=== PATIENT | female | born 1985 | race Caucasian/White ===

== ENCOUNTER 2021-04-26 15:06 | Emergency (ER) | payer OTHER, SELFPAY ==
--- NOTE | 2021-04-26 15:10 | ED.URI ---
HPI - URI/Sore Throat General Chief Complaint: Upper Respiratory Infection Stated Complaint: cough sore throat congestion Time Seen by Provider: 04/26/21 15:54 Source: patient and RN notes reviewed Mode of arrival: ambulatory Limitations: no limitations History of Present Illness HPI Narrative: 35-year-old female presents concern for 8-day history of persistent cough. Reports some nasal congestion and rhinorrhea. Reports hoarseness and cough started today. Reports she had a virtual visit with her doctor yesterday who prescribed her amoxicillin for possible sinus infection. Reports she is taken 3 doses of that the symptoms have not improved, cough persist and have gotten worse. She reports she is taken to rapid Covid test at home both which were negative. MD elicited complaint: cough Related Data Home Medications Medication Instructions Recorded Confirmed blood sugar diagnostic #10 each 08/10/19 amoxicillin 875 mg PO Q12H 04/26/21 04/26/21 benzonatate 100 mg PO TID PRN 04/26/21 04/26/21 sitagliptin-metformin [Janumet] 1 tablet PO BID 04/26/21 04/26/21 Allergies Allergy/AdvReac Type Severity Reaction Status Date / Time codeine Allergy Unknown Nausea and Verified 04/26/21 15:42 Vomiting lisinopril Allergy Unknown Nausea and Verified 04/26/21 15:42 Vomiting morphine Allergy Unknown Nausea and Verified 04/26/21 15:42 Vomiting Review of Systems Review of Systems: CONSTITUTIONAL: Denies malaise, chills, sweats, or fever. EYES: Denies visual changes, redness, or discharge. ENT: Reports rhinorrhea, congestion, sore throat, hoarse voice. Denies sinus pain, otalgia CARDIOVASCULAR: Denies chest pain, palpitations, or edema. RESPIRATORY: Reports persistent cough. Denies dyspnea. GASTROINTESTINAL: Denies abdominal pain, nausea, vomiting, diarrhea SKIN: Denies rash or itching. MUSCULOSKELETAL: Denies myalgia. NEUROLOGIC: Denies headache. All systems reviewed & are unremarkable except as noted in HPI and below PMFSH Social History Social History Smoking status: Current every day smoker Alcohol intake: current Comments At time of signature, agree with nursing past medical, surgical, social and family history. There is no relevant family history pertinent to the presenting complaint Exam Narrative: GENERAL: Well-appearing, well-nourished, and in no acute distress. HEAD: Normocephalic EYES: PERRLA, conjunctivae clear ENT: Nares clear, clear discharge. Mucous membranes moist. TM pearly cohne with dull light reflex bilaterally; no tragal tenderness. Oropharynx not erythematous without lesions. Tonsils notes enlarged and without exudate, no drooling, mildly tested hoarseness, no trismus, uvula midline. NECK: Supple. No lymphadenopathy CHEST: Clear to auscultation, breath sounds equal. No wheezing, rhonchi, rales, or stridor. No respiratory distress, speaks in full sentences. Cough noted right ear HEART: Regular rate and rhythm. No murmur heard. SKIN: Warm, dry, no rash. NEURO: Alert and oriented x3. PSYCH: Normal mood and affect Course Course Emergency Course: Patient is aware of diagnosis, understands and agrees to treatment plan. Anticipatory guidance given. Patient agrees to follow-up as directed and is aware of reasons to seek care at the emergency department. Portions of this record may have been created with voice recognition software Vital Signs Vital signs: Reviewed. MDM - URI/Sore Throat MDM Narrative Medical decision making narrative: Differential diagnosis considered: Macias virus, strep pharyngitis, allergic rhinitis, upper respiratory tract infection, sinusitis, rhinosinusitis, nasopharyngitis. viral pharyngitis, otitis media, otitis externa, pneumonia, bronchitis, viral cough syndrome, viral syndrome, and influenza. Exam findings show no acute concerns or changes; patient is non-toxic appearing and is in no distress. Patient is appropriate for outpatient treatment and follow-up. Critical Care
[2021-04-26 15:15] VITALS: BP 132/81; PULSE 91; RESP 20; TEMP 36.1; O2SAT 99
== END 2021-04-26 16:10 | disposition home or self-care (01) ==
PROVIDERS: Emergency Provider Nurse Practitioner
DX: J40 Bronchitis, not specified as acute or chronic (principal); F17.200 Nicotine dependence, unspecified, uncomplicated; K21.9 Gastro-esophageal reflux disease without esophagitis; E11.9 Type 2 diabetes mellitus without complications; F32.9 Major depressive disorder, single episode, unspecified; K75.81 Nonalcoholic steatohepatitis (NASH)
CPT/HCPCS: 99203; G0463

== ENCOUNTER 2021-09-08 12:17 | Outpatient (CLI) | payer OTHER, SELFPAY ==
--- NOTE | ~2021-09-08 | CT_ITS ---
EXAMINATION: CT sinus wo con DATE: 09/08/2021 12:36 INDICATION: Chronic frontal pain, sinusitis TECHNIQUE: Computed tomography (CT) of the paranasal sinuses was performed without contrast. Iterativ e reconstruction technique was employed. Exam dose: 279.81 mGy-cm total exam DLP. COMPARISON: None FINDINGS: There is leftward deviation of nasal septum. There is moderate asymmetric prominence of the right inferior nasal turbinate. There is severe soft tissue swelling in the midportion of the nasal cavities, the soft tissue engulfi ng the middle nasal turbinates, opacifying the millimeters bilaterally, with complete opacification o f the maxillary ostium and infundibulum and ethmoid bullae bilaterally. There is mild mucoperiosteal thickening of both frontal sinuses and prominent partial opacification o f the ethmoid air cells bilaterally. The maxillary sinuses are completely opacified bilaterally, with no aeration whatsoever. The sphenoid sinuses are normally developed and aerated. The mastoid air cells are very well developed and aerated bilaterally. IMPRESSION: Complete opacification of both ostiomeatal units and both maxillary sinuses Extensive soft tissue thickening in the region of the middle meatus and middle nasal turbinates bilat erally Mild mucoperiosteal thickening of the frontal sinuses and patchy opacification of the ethmoid air shankar ls bilaterally Reviewed, dictated and finalized at [facility]. Reviewed, dictated and finalized at [facility] IMPRESSION: Complete opacification of both ostiomeatal units and both maxillar y sinuses Extensive soft tissue thickening in the region of the middle meatus and middle nasal turbinates bilaterally Mild mucoperiosteal thickening of the frontal sinuses and patchy opacification of the ethmoid air cells bilaterally
== END 2021-09-08 12:18 | disposition home or self-care (01) ==
LOC: CHSIMG 12:18
PROVIDERS: PCP Family Medicine
DX: J32.1 Chronic frontal sinusitis (principal)
CPT/HCPCS: 70486

== ENCOUNTER 2021-10-10 08:44 | Outpatient (CLI) | payer OTHER, SELFPAY ==
--- NOTE | 2021-10-10 09:02 | ECG_ITS ---
Measurements Intervals [place] Rate: 73 P: 25 RI: 118 QRS: 31 QRSD: 95 T: 26 QT: 377 QTc: 416 Interpretive Statements SINUS RHYTHM WITH SHORT RI INTERVAL BASELINE ARTIFACT- I, III, AVR, AVL, AVF BORDERLINE ECG Electronically Signed On 10-10-2021 9:43:29 CENTRAL STATION OPERATOR by Rickey Martinez D.O.
[2021-10-10 09:46] LABS: Anion Gap 8 mmol/L (8-16); Blood Urea Nitrogen 10 mg/dL (7-17); Calcium 9.1 mg/dL (8.4-10.2); Carbon Dioxide 28 mmol/L (22-30); Chloride 105 mmol/L (98-107); Estimated Glomerular Filt Rate > 60; Glucose 164 mg/dL (65-110); Potassium 4.6 mmol/L (3.4-5.0); Sodium 141 mmol/L (137-145)
[2021-10-10 09:48] LABS: Prothrombin Time 12.9 Seconds (11.1-14.7)
[2021-10-10 09:49] LABS: Partial Thromboplastin Time 26.8 SECONDS (22.3-36.8)
== END 2021-10-10 08:45 | disposition home or self-care (01) ==
LOC: ANHSURGERY 08:50
PROVIDERS: Anesthesiology; PCP Family Medicine; Visit Provider Otolaryngology
DX: Z01.812 Encounter for preprocedural laboratory examination (principal); E11.9 Type 2 diabetes mellitus without complications; K75.81 Nonalcoholic steatohepatitis (NASH)
CPT/HCPCS: 36415; 80048; 85610; 85730; 93005

== ENCOUNTER 2021-10-13 03:47 | Day surgery (SDC) | payer OTHER, SELFPAY ==
[2021-10-05 14:54] VITALS: BMI 37.9
--- NOTE | 2021-10-05 15:24 | PC.NURSE ---
Report to the Outpatient Waiting Room, entrance under the green pavilion located off [facility], at time _1000_ on date 10/13/21_. OR Time: _1200 . IF YOUR SURGERY TIME IS CHANGED, WE WILL CALL YOU TH10/12/21 AFTERNOON - You will be asked a series of questions to screen for COVID 19 for your protection. - A mask is required within the hospital. - No visitors are allowed at this time. Preoperative COVID Testing Requirements: No COVID Test needed if: (proof is required; if not received patient will have Rapid Test prior to entry)YOU DO NOT REQUIRE COVID SCREENING - Patient has received COVID Vaccine at least 14 days prior to procedure date or - Patient has positive COVID test result within last 90 days of surgery date. COVID Test needed if above criteria is not met If not COVID vaccinated a COVID test must be conducted within 72 hours of surgery and patient is asked to isolate self from time of testing until procedure. You will go to the [facility] for your COVID testing. The [facility] Testing site is located at the corner of [address] from [facility]. You will only be called if COVID results are positive and your surgeon may reschedule your elective surgery date. Patients may have clear liquids (water, carbonated beverages, clear teas, apple juice) until 3 hours prior to surgery with a maximum of 20 ounces. YOU MAY HAVE CLEAR LIQUIDS UNTIL 0900 ON THE MORNING OF SURGERY - No food from midnight until time of surgery - Infants may have breast milk until 4 hours before surgery, infant formula 6 hours prior to surgery. - Children will be allowed to drink immediately following surgery. If applicable, please bring a bottle or sippy cup to assist with drinking. Juice, water, soda, and popsicles are readily available. For infants on formula, please bring formula the day of surgery. Pacifiers are allowed. Take the following medications with a SIP of water the morning of surgery: _HOLD MORNING DIABETIC MEDS; TAKE LEXAPRO IF YOU DESIRE Medications to discontinue per physician ____VITAMINS & SUPPLMEMENTS Date to take last dose___10/10/21 Please no make-up, nail estonian, hairspray, perfume, deodorant, or body powder the day of surgery. No jewelry (including any body piercings) or valuables the day of surgery, leave them at home. Please take a shower or bath the night before, or the morning of, surgery with an antibacterial soap. Wear comfortable, loose fitting clothing. Children are encouraged to wear pajamas. - Jewelry must be removed prior to entering the operating room. Rings and piercings that are not removed may be cut off. - The hospital will not accept responsibility for valuables. - Please leave all valuables, including medications, at home the day of surgery. If you are going home after surgery, a licensed pile driver operator helper must drive you home. - NO public transportation without another adult. - We recommend that an adult stay with you for 24 hours following discharge. - We also recommend that you do not drive, make important decision, drink alcoholic beverages, or take any drugs that were not prescribed by your health care provider for at least 24 hours after your discharge time. For Pediatric surgeries, we recommend two adults accompany the child home (only one inside the building at this time). Follow any additional instructions given to you from your surgeon. Telephone instructions given to JEANE and asked if any additional questions and then verbalized understanding. Patient advised to call surgeon office or pre surgery nurse liaison [phone] if any additional questions.
--- NOTE | 2021-10-12 17:37 | PM.IMHP ---
H&P: HPI History of Present Illness Date/Time: 10/12/21 17:37 Chief Complaint: Nasal obstruction nasal congestion septal deviation turbinate hypertrophy chronic sinusitis odontogenic sinusitis Narrative: patient presents for planned surgical procedures. No change in symptoms no change in history. Review of Systems Constitutional: Constitutional: Denies fatigue, Denies fever(s) and Denies lethargy Eyes: Eyes: Denies blurry vision and Denies change in vision ENT: Reports as per HPI Cardiovascular: Cardiovascular: Denies chest pain Respiratory: Respiratory: Denies cough Endocrine: Endocrine: Denies fatigue Hematologic/Lymphatic: Hematologic/Lymphatic: Denies easy bleeding, Denies easy bruising and Denies lymphadenopathy Allergic/Immunologic: Allergic/Immunologic: Denies seasonal rhinorrhea [facility] Past Medical History Medical History (Updated 09/13/21 @ 09:17 by Demetrius Escobedo MD) Diabetes GERD (gastroesophageal reflux disease) GONSALES (nonalcoholic steatohepatitis) Social History Social History (Updated 09/13/21 @ 08:16 by Milagros Jovel MA) Smoking packs per day: 1 Smoking cigarettes per day: 20.0 Years smoked: 10 Smoking pack-years: 10.00 Smoking status: Former smoker Alcohol intake: never Substance use: never Substance use type: does not use Last use: 2009 Spiritual care concerns: No Meds Home Medications and Allergies Home Medications Medication Instructions Recorded Confirmed Type pantoprazole 40 mg tablet,delayed 40 mg PO QAM #90 tablet 08/03/19 10/05/21 Rx release pen needle, diabetic 32 gauge x #100 each 08/03/19 09/13/21 Rx 1/6 blood sugar diagnostic #10 each 08/10/19 09/13/21 History dulaglutide 1.5 mg/0.5 mL 1.5 mg SUB-Q WEEKLY #2 ml 09/18/19 10/05/21 Rx subcutaneous pen injector sitagliptin-metformin [Janumet] 1 tablet PO BID 04/26/21 10/05/21 History escitalopram oxalate 10 mg tablet 10 mg PO DAILY 09/13/21 10/05/21 History spironolactone 50 mg tablet 50 mg PO DAILY 09/13/21 10/05/21 History insulin glargine-yfgn 120 unit SUBCUT DAILY 10/05/21 10/05/21 History [Semglee(insulin glarg-yfgn)Pen] doxycycline hyclate 100 mg capsule 100 mg PO DAILY #7 cap 10/06/21 10/06/21 Rx prednisone 20 mg tablet 20 mg PO DAILY #3 tablet 10/09/21 Rx Allergies Allergy/AdvReac Type Severity Reaction Status Date / Time codeine Allergy Unknown Nausea and Verified 10/05/21 15:43 Vomiting morphine Allergy Unknown Nausea and Verified 10/05/21 15:43 Vomiting Exam Const: General: cooperative, healthy appearing, comfortable, well developed and alert HENMT: Head: normal to inspection, normocephalic and atraumatic Ears: hearing grossly normal bilaterally, external ears normal, TM's normal bilaterally and EAC's normal General nose exam: Normal external nose present, Normal nares present and Other nasal findings present ( Septum deviation turbinate hypertrophy) Face and sinus: normal facial exam Mouth: Yes Normal oral and palatal mucosa present, Yes lip normal, Yes tongue normal, Yes oropharynx normal and Yes moist mucous membranes Teeth and gingiva: dentition normal and gingiva normal Throat: posterior oropharynx normal, tonsils normal and uvula midline Eyes: General: appearance normal, both eyes and all related structures Periorbital: periorbital findings normal Eyelids: eyelids normal Conjunctivae: conjunctivae normal Sclera: sclerae normal Neck: Neck: normal visual inspection, full ROM and no lymphadenopathy Thyroid: thyroid normal Lymphatic: no lymphadenopathy noted Resp: Effort & Inspection: normal respiratory effort and able to speak in complete sentences Cardio: Jugular venous distension: no JVD Neuro: Cranial nerves: Yes CN's II-XII intact bilaterally Assessment and Plan Assessment and plan (1) Facial pain: Code(s): R51.9 - Headache, unspecified Status: Acute Assessment and Plan: this is different than what was booked f
[2021-10-13] VITALS (8 sets, daily range): BP systolic 118–134; BP diastolic 70–80; PULSE 85–120; RESP 12–20; TEMP 36.1–36.3; O2SAT 94–99
--- NOTE | 2021-10-13 07:12 | WPDHPUPDATE1 ---
History and Physical Update Update Date/Time: 10/13/21 07:12 History and Physical has been reviewed, including an updated exam of the patient. There are NO changes in the patient's condition. Risks, benefits, and alternatives have been discussed and questions answered. Patient agrees to proceed with procedure.
[2021-10-13] MEDS: LACTATED RINGERS 1,000 ML 30 ML IV CONT ×2 (08:23→13:16)
[2021-10-13] MEDS: ACETAMINOPHEN 500 MG TABLET 1000 MG PO (08:31)
[2021-10-13 08:46] LABS: Glucose Point of Care 153 mg/dl (65-105)
--- NOTE | 2021-10-13 08:49 | WPDANESEPPF ---
Anes - Initial Pre Proc Eval Procedure: Operation Date: 10/13/21 10:00 Proposed Procedures p Image Guided Bilateral Inferior Turbinectomy with Outfracture, Bilateral Maxillary Antrostomy, Total Ethmoidectomy, Frontal Sinusotomies - Demetrius Escobedo MD s Endoscopic Septoplasty - Demetrius Escobedo MD Date/Time: 10/13/21 08:49 Surgeon: Demetrius Escobedo MD Pre Op Diagnosis: Chronic Sinusitis Patient Data Age: 36 Gender: F Height: 1.78 m Weight: 121.4 kg Last Vital Signs Temp 36.3 C L 10/13/21 08:21 Pulse 89 10/13/21 08:21 Resp 16 10/13/21 08:21 BP 118/70 10/13/21 08:21 Pulse Ox 98 10/13/21 08:21 Allergies Allergy/AdvReac Type Severity Reaction Status Date / Time codeine Allergy Unknown Nausea and Verified 10/13/21 08:13 Vomiting morphine Allergy Unknown Nausea and Verified 10/13/21 08:13 Vomiting Home Medications Medication Instructions Recorded Confirmed Type pantoprazole 40 mg tablet,delayed 40 mg PO QAM #90 tablet 08/03/19 10/13/21 Rx release pen needle, diabetic 32 gauge x #100 each 08/03/19 10/13/21 Rx 1/6 blood sugar diagnostic #10 each 08/10/19 10/13/21 History dulaglutide 1.5 mg/0.5 mL 1.5 mg SUB-Q WEEKLY #2 ml 09/18/19 10/13/21 Rx subcutaneous pen injector sitagliptin-metformin [Janumet] 1 tablet PO BID 04/26/21 10/13/21 History escitalopram oxalate 10 mg tablet 10 mg PO DAILY 09/13/21 10/13/21 History spironolactone 50 mg tablet 50 mg PO DAILY 09/13/21 10/13/21 History insulin glargine-yfgn 120 unit SUBCUT DAILY 10/05/21 10/13/21 History [Semglee(insulin glarg-yfgn)Pen] doxycycline hyclate 100 mg capsule 100 mg PO DAILY #7 cap 10/06/21 10/13/21 Rx Laboratory Tests 10/13/21 08:37 POC Capillary Glucose 153 mg/dl H mg/dl (65-105) Patient hx anesthesia problems: none Family hx anesthesia problems: none Results Review: All pre-operative results and documents have been reviewed as part of the pre-operative evaluation. [facility] Past Medical History Medical History (Updated 10/13/21 @ 08:49 by Chuy Morrison MD) Diabetes GERD (gastroesophageal reflux disease) GONSALES (nonalcoholic steatohepatitis) Obesity Social History Social History (Updated 09/13/21 @ 08:16 by Milagros Jovel MA) Smoking packs per day: 1 Smoking cigarettes per day: 20.0 Years smoked: 10 Smoking pack-years: 10.00 Smoking status: Former smoker Alcohol intake: never Substance use: never Substance use type: does not use Last use: 2009 Living arrangements: with family Spiritual care concerns: No Anes - Eval Final PreProcedure Day of Procedure 10/13/21 08:49 Patient weight: obese Heart: regular rate and rhythm Lungs: clear to auscultation Airway: Mallampati scale class II Neurological: alert and oriented Last oral intake: >/= 8 hours ASA classification: II Emergent: no Anesthetic plan: proceed Anesthesia type and monitoring: general ETT and standard monitoring Results Review: All pre-operative results and documents have been reviewed as part of the pre-operative evaluation. Informed Consent: The patient's anesthetic plan and its attendant risks and benefits were discussed with the patient/family/POA. Questions were solicited and answers provided to the satisfaction of the patient/family/POA.
[2021-10-13] MEDS: ceFAZolin 3 GM/D5W 100 ML 100 ML IVPB (10:26)
[2021-10-13] MEDS: OXYMETAZOLINE HCL 0.05% NAS 15 ML BTL (*BKC) 1 SPRAY NASAL (11:10)
[2021-10-13] MEDS: MUPIROCIN 2% OINT 22 GM TUBE 1 APPLIC EACH NARE (12:48)
[2021-10-13] MEDS: LIDO 1%/EPINEPHRINE 1:100,000 50 ML VIAL 20 ML INFILTRATE (12:48)
[2021-10-13 14:49] LABS: Glucose Point of Care 225 mg/dl (65-105)
--- NOTE | 2021-10-13 18:13 | P.OP_ITS ---
Procedure Note - Detailed Date of Procedure 10/13/21 Pre-op Diagnosis Chronic Sinusitis, septal deviation, turbinate hypertrophy, scarred down middle turbinates, nasal obstruction, nasal congestion, Yu genex sinusitis Post-op Diagnosis same Procedure Performed Endoscopic bilateral maxillary antrostomies total ethmoidectomies left sphenoidotomy bilateral frontal sinusotomies these were all endoscopic and image guided, endoscopic assisted septoplasty, inferior turbinate submucosal resection with outfracture, bilateral middle turbinectomies Surgeon Demetrius Escobedo MD Anesthesia general Indications The above largely odontogenic sinusitis Findings Edematous purulent tissue in all the aforementioned sinuses septal deviation corrected turbinate hypertrophy corrected Description of Procedure Patient identified consent verified. Patient brought operating room. Time-out performed. General anesthesia induced tube secured left lower lip. Second time-out performed. Image guidance initiated set up Afrin-soaked pledgets placed bilaterally allowed to sit for 5 minutes. This patient prepped and draped for for mentioned procedure. 0 degree endoscope utilized total 12-13 cc injected in the bilateral nasal septum heads of inferior turbinates left-sided Price incision made with 15 blade nasal septum. Left-sided mucoperichondrial flap elevated 7 Nepali suction septum crossed over with osteotome right-sided mucoperichondrial flap elevated the same fashion small perforations not touching non opposing. Deviated septum removed combination Sanchez Romo forceps Lyndsay forceps osteotome. Ben Wheeler incision closed 3 interrupted 5 0 fast gut sutures. Turbinates reduced bilaterally submucosal plane microdebrider 2 mm blade they were then outfractured. This was bilateral. All the sinus surgeries bilateral other than the left sphenoidotomy. Maxillary antrostomies were difficult because the bilateral middle turbinates were scarred down likely from chronic infection middle turbinectomies perform a straight through cut Bovie suction electrocautery at a setting of 10 and 15. Hemostasis excellent maxillary antrostomies performed double tip probe back biter in straight through cut as well as microdebrider. Copious amounts of purulence noted the bilateral maxillary antrostomies total ethmoidectomies performed with Kerrison micro debrider again purulence and edematous tissue noted. Left sphenoidotomy performed with 1 in 3 Kerrison as well as microdebrider edematous tissue noted no purulence. 70 degree scope utilized as well as Hosemann and frontal sinus image guided suction. To that note, image guidance was used throughout the procedure for safety and confirm location. Frontal sinus is easily cannulated opened widely with Hosemann punch and Cobra purulence and edematous tissue not ed. All of the aforementioned sinuses were copiously irrigated with sterile normal saline. Total blood loss approximately 100 cc. Ellison splints were placed bilaterally and sutured anteriorly across nasal septum with 3-0 mattress nylon suture. There were no immediate complications. Care the patient was turbinate Anesthesiology. I performed all dictated portions of the procedure. Nova pack was placed in the bilateral middle meati eye. Estimated Blood Loss -100.0 Drains No Packing Yes Pathology none sent Complications No immediate complications Condition stable Disposition PACU
== END 2021-10-13 15:30 | disposition home or self-care (01) ==
PROVIDERS: PCP Family Medicine; Visit Provider Otolaryngology
PROC: (CPT 31256; principal; 2021-10-13 10:00)
PROC: (CPT 30520; 2021-10-13 10:00)
DX: J32.9 Chronic sinusitis, unspecified (principal); R09.81 Nasal congestion; J34.89 Other specified disorders of nose and nasal sinuses; J34.2 Deviated nasal septum; J34.3 Hypertrophy of nasal turbinates; R51.9 Headache, unspecified; E11.9 Type 2 diabetes mellitus without complications; K75.81 Nonalcoholic steatohepatitis (NASH); K21.9 Gastro-esophageal reflux disease without esophagitis; Z79.84 Long term (current) use of oral hypoglycemic drugs; Z79.4 Long term (current) use of insulin; Z79.899 Other long term (current) drug therapy; E66.9 Obesity, unspecified; Z68.38 Body mass index [BMI] 38.0-38.9, adult; Z87.891 Personal history of nicotine dependence
CPT/HCPCS: 31256; 31253; 31257; 30140; 61782; 30520; 36415; 80048; 82948; 85610; 85730; 93005; A9270; J0330; J0690; J1100; J1170; J2250; J2405; J2704; J3010; J7120

== ENCOUNTER 2022-01-15 08:44 | Outpatient (CLI) | payer OTHER, SELFPAY ==
--- NOTE | ~2022-01-15 | XR_ITS ---
EXAMINATION: XR wrist LT min 3V DATE: 01/15/2022 09:11 INDICATION: Chronic left wrist pain and numbness. TECHNIQUE: 3 views of left wrist were obtained. COMPARISON: None. FINDINGS: Bone alignment is normal. No fracture. There is mild osteoarthritis of distal radioulnar wilma int and triscaphe joint. IMPRESSION: 1. Mild polyarticular osteoarthritis. Reviewed, dictated and finalized at location [facility].
--- NOTE | ~2022-01-15 | XR_ITS ---
EXAMINATION: XR wrist RT min 3V DATE: 01/15/2022 09:11 INDICATION: Right wrist chronic pain and numbness. TECHNIQUE: 3 views of right wrist were obtained. COMPARISON: None. FINDINGS: Bone alignment is normal. There is 7 mm negative ulnar variance. No fracture. There is mild osteoarthritis of distal radioulnar joint. IMPRESSION: 1. Mild osteoarthritis of distal radioulnar joint. Reviewed, dictated and finalized at location A.
== END 2022-01-15 08:45 | disposition home or self-care (01) ==
LOC: CHSIMG 08:51
PROVIDERS: PCP Family Medicine; Visit Provider Orthopaedic Surgery
DX: M25.532 Pain in left wrist (principal); M25.531 Pain in right wrist
CPT/HCPCS: 73110

== ENCOUNTER 2022-04-10 07:52 | Outpatient (CLI) | payer OTHER, SELFPAY ==
[2022-04-10 08:29] LABS: Anion Gap 10 mmol/L (8-16); Blood Urea Nitrogen 12 mg/dL (7-17); Calcium 9.1 mg/dL (8.4-10.2); Carbon Dioxide 30 mmol/L (22-30); Chloride 100 mmol/L (98-107); Estimated Glomerular Filt Rate > 60; Glucose 113 mg/dL (65-110); Potassium 4.5 mmol/L (3.4-5.0); Sodium 140 mmol/L (137-145)
== END 2022-04-10 07:53 | disposition home or self-care (01) ==
LOC: ANHSURGERY 07:57
PROVIDERS: Anesthesiology; PCP Family Medicine; Visit Provider Orthopaedic Surgery
DX: Z01.818 Encounter for other preprocedural examination (principal); E11.9 Type 2 diabetes mellitus without complications
CPT/HCPCS: 36415; 80048

== ENCOUNTER 2022-04-12 00:19 | Day surgery (SDC) | payer OTHER, SELFPAY ==
--- NOTE | 2022-04-09 10:26 | SUR.PREOP ---
Report to the Outpatient Waiting Room, entrance under the green pavilion located off [facility], at time 0630 on date 04/12/22. OR Time: 0830. - You and your visitor will be asked to self-screen and do not enter if you have any COVID symptoms. - Only one visitor and NO children visitors are allowed at this time. - The patient visitor is requested to leave or wait in car when not with patient due to restrictions. - A mask is required within the hospital. Patients may have clear liquids (water, carbonated beverages, clear teas, apple juice) until 3 hours prior to surgery with a maximum of 20 ounces. - NO CLEAR LIQUIDS AFTER 0530 - No food from midnight until time of surgery - Infants may have breast milk until 4 hours before surgery, infant formula 6 hours prior to surgery. - Children will be allowed to drink immediately following surgery. If applicable, please bring a bottle or sippy cup to assist with drinking. Juice, water, soda, and popsicles are readily available. For infants on formula, please bring formula the day of surgery. Pacifiers are allowed. Take the following medications with a SIP of water the morning of surgery: ZOLOFT Medications to discontinue per physician STOP VITAMINS & SUPPLEMENTS 04/10/22 Please no make-up, nail kyrgyz, hairspray, perfume, deodorant, or body powder the day of surgery. No jewelry (including any body piercings) or valuables the day of surgery, leave them at home. Please take a shower or bath the night before, or the morning of, surgery with an antibacterial soap. Wear comfortable, loose fitting clothing. Children are encouraged to wear pajamas. - Jewelry must be removed prior to entering the operating room. Rings and piercings that are not removed may be cut off. - The hospital will not accept responsibility for valuables. - Please leave all valuables, including medications, at home the day of surgery. If you are going home after surgery, a licensed truck driver's offsider must drive you home. - NO public transportation without another adult. - We recommend that an adult stay with you for 24 hours following discharge. - We also recommend that you do not drive, make important decision, drink alcoholic beverages, or take any drugs that were not prescribed by your health care provider for at least 24 hours after your discharge time. For Pediatric surgeries, we recommend two adults accompany the child home (only one inside the building at this time). Follow any additional instructions given to you from your surgeon. If you or anyone in your household have experienced Covid symptoms in the past week, please notify your surgeon or the nurse liaison at the phone number below for possible testing. Telephone instructions given to LORE BAPTISTE and asked if any additional questions and then verbalized understanding. Patient advised to call surgeon office or pre surgery nurse liaison [phone] if any additional questions.
[2022-04-09 10:35] VITALS: BMI 37.0
[2022-04-12 06:33] VITALS: BP 126/77; PULSE 75; RESP 16; TEMP 36.2; O2SAT 100
--- NOTE | 2022-04-12 07:02 | WPDHPUPDATE1 ---
History and Physical Update Update Date/Time: 04/12/22 07:02 History and Physical has been reviewed, including an updated exam of the patient. There are NO changes in the patient's condition. Risks, benefits, and alternatives have been discussed and questions answered. Patient agrees to proceed with procedure.
[2022-04-12 07:15] LABS: Glucose Point of Care 126 mg/dl (65-105)
--- NOTE | 2022-04-12 07:22 | PM.IMHP ---
H&P: HPI History of Present Illness Date/Time: 04/12/22 07:22 Chief Complaint: Left hand numbness and tingling. Narrative: Presents for left hand numbness and tingling. Unrelieved with conservative measures. Nerve study shows median nerve compression at the left wrist. Patient desires operative treatment. Review of Systems Constitutional: Constitutional: Denies fever(s) Eyes: Eyes: Denies blurry vision ENT: Reports Normal hearing present Cardiovascular: Cardiovascular: Denies chest pain and Denies dyspnea Respiratory: Respiratory: Denies dyspnea and Denies wheezing Gastrointestinal: Gastrointestinal: Denies abdominal pain Genitourinary: Genitourinary: Denies urinary urgency Musculoskeletal: Musculoskeletal: Reports as per HPI and Denies numbness Integumentary/Breasts: Skin/Breast: Denies changing lesions and Denies sores Neurologic: Reports Normal hearing present, Denies behavioral changes, Denies confusion, Denies numbness and Denies convulsions Psychiatric: Psychiatric: Denies behavioral changes, Denies confusion and Denies hallucinations Endocrine: Endocrine: Denies heat intolerance Hematologic/Lymphatic: Hematologic/Lymphatic: Denies easy bleeding Allergic/Immunologic: Allergic/Immunologic: Denies wheezing [facility] Past Medical History Medical History (Updated 04/12/22 @ 07:24 by Armani Orellana MD) Anxiety and depression Carpal tunnel syndrome, bilateral Carpal tunnel syndrome, left Diabetes GERD (gastroesophageal reflux disease) IBS (irritable bowel syndrome) GONSALES (nonalcoholic steatohepatitis) Obesity PCOS (polycystic ovarian syndrome) Wears glasses Surgical History Surgical History H/O LEEP (~08/26/02) Dysplasia History of gynecological procedure (01/28/19) mirena iud insertion History of gynecological procedure (12/14/20) Vulvar biopsy ; Benign History of sinus surgery History of tonsillectomy (08/26/94) Family History Family History Grandparent Lung cancer Breast cancer maternal grandmother Diabetes mellitus Pancreatic cancer Liver cancer Mother Crohn's disease Social History Social History Years smoked: 8 Smoking status: Former smoker Tobacco type: cigarettes Smoking end date: 04/15/09 Alcohol intake: current Substance use: never Substance use type: does not use Living arrangements: with family Additional living arrangements comments: spouse 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 [employer] Gender identity (if verbalized by the patient): Female Sexual Orientation (if Verbalized by the Patient): Straight or Heterosexual Spiritual care concerns: No Meds Home Medications and Allergies Home Medications Medication Instructions Recorded Confirmed Type pantoprazole 40 mg tablet,delayed 40 mg PO QAM #90 tabs 08/03/19 04/12/22 Rx release pen needle, diabetic 32 gauge x #100 ea 08/03/19 04/12/22 Rx 1/6 (NovoFine Plus) blood sugar diagnostic (OneTouch #10 ea 08/10/19 04/12/22 History Verio test strips) dulaglutide 1.5 mg/0.5 mL 1.5 mg (0.5 mL) subcut WEEKLY #2 mL 09/18/19 04/12/22 Rx subcutaneous pen injector (Trulicity) sitagliptin 50 mg-metformin 1,000 1 tablet PO BID 04/26/21 04/12/22 History mg tablet (Janumet) insulin glargine-yfgn 100 unit/mL 80 unit subcut DAILY 10/05/21 04/12/22 History (3 mL) subcutaneous pen (Semglee (insulin glargine-yfgn) Pen) multivitamin 1 tablet PO DAILY 11/06/21 04/12/22 History spironolactone 50 mg tablet 50 mg PO Q12H #90 tabs 11/06/21 04/12/22 Rx sertraline 50 mg tablet (Zoloft) 50 mg PO DAILY 12/18/21 04/12/22 History Immune 24 2 tab-cap PO DAILY 01/15/22 04/12/22 History Women's Probiotic and Prebiotic 1 tab-cap PO DAILY 01/15/22 04/12/22 History green tea leaf extract and g
--- NOTE | 2022-04-12 07:41 | WPDANESEPPF ---
Anes - Initial Pre Proc Eval Procedure: Operation Date: 04/12/22 08:30 Proposed Procedures p Left Carpal Tunnel Release - Armani Orellana MD Date/Time: 04/12/22 07:41 Surgeon: Armani Orellana MD Pre Op Diagnosis: left carpal tunnel syndrome Patient Data Age: 36 Gender: F Height: 1.78 m Weight: 117.9 kg Last Vital Signs Temp 36.2 C L 04/12/22 06:33 Pulse 75 04/12/22 06:33 Resp 16 04/12/22 06:33 BP 126/77 04/12/22 06:33 Pulse Ox 100 04/12/22 06:33 O2 Del Method Room Air 04/12/22 06:33 Allergies Allergy/AdvReac Type Severity Reaction Status Date / Time codeine Allergy Intermediate Nausea and Verified 04/12/22 07:09 Vomiting morphine Allergy Intermediate Nausea and Verified 04/12/22 07:09 Vomiting Home Medications Medication Instructions Recorded Confirmed Type pantoprazole 40 mg tablet,delayed 40 mg PO QAM #90 tabs 08/03/19 04/12/22 Rx release pen needle, diabetic 32 gauge x #100 ea 08/03/19 04/12/22 Rx 1/6 (NovoFine Plus) blood sugar diagnostic (OneTouch #10 ea 08/10/19 04/12/22 History Verio test strips) dulaglutide 1.5 mg/0.5 mL 1.5 mg (0.5 mL) subcut WEEKLY #2 mL 09/18/19 04/12/22 Rx subcutaneous pen injector (Trulicity) sitagliptin 50 mg-metformin 1,000 1 tablet PO BID 04/26/21 04/12/22 History mg tablet (Janumet) insulin glargine-yfgn 100 unit/mL 80 unit subcut DAILY 10/05/21 04/12/22 History (3 mL) subcutaneous pen (Semglee (insulin glargine-yfgn) Pen) multivitamin 1 tablet PO DAILY 11/06/21 04/12/22 History spironolactone 50 mg tablet 50 mg PO Q12H #90 tabs 11/06/21 04/12/22 Rx sertraline 50 mg tablet (Zoloft) 50 mg PO DAILY 12/18/21 04/12/22 History Immune 24 2 tab-cap PO DAILY 01/15/22 04/12/22 History Women's Probiotic and Prebiotic 1 tab-cap PO DAILY 01/15/22 04/12/22 History green tea leaf extract and green 1 tablet PO DAILY 01/15/22 04/12/22 History tea leaf 1,000 mg tablet pravastatin 10 mg tablet 20 mg PO DAILY 01/15/22 04/12/22 History vitamin B complex (B 1 tablet PO DAILY 01/15/22 04/12/22 History Complex-Vitamin B12 tablet) Laboratory Tests 04/12/22 07:07 POC Capillary Glucose 126 mg/dl H mg/dl (65-105) Patient hx anesthesia problems: none Family hx anesthesia problems: none Results Review: All pre-operative results and documents have been reviewed as part of the pre-operative evaluation. [facility] Past Medical History Medical History (Updated 04/12/22 @ 07:24 by Armani Orellana MD) Anxiety and depression Carpal tunnel syndrome, bilateral Carpal tunnel syndrome, left Diabetes GERD (gastroesophageal reflux disease) IBS (irritable bowel syndrome) GONSALES (nonalcoholic steatohepatitis) Obesity PCOS (polycystic ovarian syndrome) Wears glasses Surgical History Surgical History H/O LEEP (~08/26/02) Dysplasia History of gynecological procedure (01/28/19) mirena iud insertion History of gynecological procedure (12/14/20) Vulvar biopsy ; Benign History of sinus surgery History of tonsillectomy (08/26/94) Family History Family History Grandparent Lung cancer Breast cancer maternal grandmother Diabetes mellitus Pancreatic cancer Liver cancer Mother Crohn's disease Social History Social History Years smoked: 8 Smoking status: Former smoker Tobacco type: cigarettes Smoking end date: 04/15/09 Alcohol intake: current Substance use: never Substance use type: does not use Living arrangements: with family Additional living arrangements comments: spouse 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
[2022-04-12] MEDS: ACETAMINOPHEN 500 MG TABLET 1000 MG PO (07:51)
[2022-04-12] MEDS: LACTATED RINGERS 1,000 ML 30 ML IV CONT (07:51)
[2022-04-12] MEDS: KETOROLAC 15 MG/ML VIAL (*BKC) IV PUSH (07:51)
[2022-04-12 08:06] LABS: Partial Thromboplastin Time 27.8 SECONDS (22.3-36.8)
[2022-04-12] MEDS: ceFAZolin 2 GM/D5W 50 ML 2 GM/50 ML BAG IVPB (08:26)
[2022-04-12] MEDS: LIDOCAINE HCL 2% PF INJ 5 ML VIAL 10 ML INFILTRATE (08:56)
[2022-04-12] MEDS: BUPIVACAINE/EPINEPHRINE 0.25% 50 ML VIAL 10 ML INFILTRATE (08:57)
[2022-04-12 09:10] VITALS: BP 98/57; PULSE 86; RESP 15; O2SAT 96
--- NOTE | 2022-04-12 09:13 | P.OP_ITS ---
Procedure Note - Detailed Date of Procedure 04/12/22 Pre-op Diagnosis left carpal tunnel syndrome Post-op Diagnosis Same Procedure Performed Left carpal tunnel release. Surgeon Armani Orellana MD Cook Helper Dessert entry level marketing assistant Anesthesia MAC Indications The patient has history, exam findings, and electrodiagnostic findings consistent with carpal tunnel syndrome. Conservative treatment with bracing/ splinting, activity modifications, medication, ergonomics, injections has failed. Symptoms are daily and affect ability to use hand. The patient desires operative treatment. Description of Procedure After informed consent was given, the operative extremity was marked in the preoperative holding area. Intravenous antibiotics were given. The patient was taken to the operating room and underwent conscious sedation by the anesthesia team. A time-out was performed confirming patient, procedure, and operative site. Local infiltrate at the carpal tunnel was done with 0.5% marcaine. Prepping and draping was done using chloraprep skin solution with usual surgical sterile technique. Anatomic landmarks marked on skin. Hand was exsanguinated and arm tourniquet inflated to 225mmHg. Incision was made with #15 blade knife in skin crease on volar palm. Hemostasis was achieved with electrocautery. Careful dissection was carried down to the transverse carpal ligament. Retractors were placed. Ligament overlying median nerve was incised in line with skin incision using osage blade. Proximal and distal release was done with metzenbaum scissors under direct visualization. Mosquito clamp was placed deep to ligament to protect nerve during release. The nerve was inspected and noted to be intact with mild flattening. Tendons had good excursion. The tourniquet was then released and pressure held. Bleeding points were c oagulated with bipolar cautery. The wound was thoroughly irrigated with antibiotic solution. The skin was closed with 4-0 nylon interrupted suture. A sterile dressing was applied. Good capillary refill in the fingers and thumb was noted. The patient was transported to the recovery room in stable condition. All sponge, needle, instrument counts were correct at the end of the case. Estimated Blood Loss 2 Tourniquet Time 7 Drains No Packing No Pathology None sent Complications None Condition Stable Disposition PACU
[2022-04-12 09:18] LABS: Glucose Point of Care 121 mg/dl (65-105)
[2022-04-12 09:40] VITALS: BP 118/76; PULSE 70; RESP 16
[2022-04-12 10:02] VITALS: BP 121/78; PULSE 76; RESP 16
== END 2022-04-12 10:05 | disposition home or self-care (01) ==
PROVIDERS: Anesthesiology; PCP Family Medicine; Visit Provider Orthopaedic Surgery
PROC: (CPT 64721; principal; 2022-04-12 08:30)
DX: G56.02 Carpal tunnel syndrome, left upper limb (principal); E11.9 Type 2 diabetes mellitus without complications; K21.9 Gastro-esophageal reflux disease without esophagitis; K58.9 Irritable bowel syndrome, unspecified; K75.81 Nonalcoholic steatohepatitis (NASH); E28.2 Polycystic ovarian syndrome; F41.8 Other specified anxiety disorders; Z87.891 Personal history of nicotine dependence; E66.9 Obesity, unspecified; Z68.37 Body mass index [BMI] 37.0-37.9, adult; Z79.4 Long term (current) use of insulin; Z79.84 Long term (current) use of oral hypoglycemic drugs
CPT/HCPCS: 64721; 36415; 80048; 82948; 85610; 85730; A9270; J0690; J1885; J2250; J2704; J3010; J7120

== ENCOUNTER 2022-06-30 13:25 | Outpatient (CLI) | payer OTHER, SELFPAY ==
[2022-06-30 13:54] LABS: Anion Gap 8 mmol/L (8-16); Blood Urea Nitrogen 11 mg/dL (7-18); Calcium 8.8 mg/dL (8.5-10.1); Carbon Dioxide 29 mmol/L (21-32); Chloride 105 mmol/L (98-108); Estimated Glomerular Filt Rate > 60; Glucose 167 mg/dL (70-99); Osmolality Calculated 297 mOsm/kg (285-295); Potassium 4.1 mmol/L (3.5-5.1); Sodium 142 mmol/L (136-145)
[2022-06-30 14:00] LABS: INR 0.9; Partial Thromboplastin Time 27.3 SEC (23.90-30.70); Prothrombin Time 10.3 Seconds (9.50-12.10)
== END 2022-06-30 13:26 | disposition home or self-care (01) ==
LOC: CHSLAB 13:27
PROVIDERS: PCP Orthopaedic Surgery; Visit Provider Anesthesiology
DX: K75.81 Nonalcoholic steatohepatitis (NASH) (principal); E11.9 Type 2 diabetes mellitus without complications
CPT/HCPCS: 36415; 80048; 85610; 85730

== ENCOUNTER 2022-07-05 00:27 | Day surgery (SDC) | payer OTHER, SELFPAY ==
[2022-06-29 15:02] VITALS: BMI 37.3
--- NOTE | 2022-06-29 15:04 | PC.NURSE ---
Report to the Outpatient Waiting Room, entrance under the green pavilion located off [facility], at time 0600 on date 07/05/22. Planned Procedure Time: 0730. Time changes happen often and if your time is changed the preop area will call you the afternoon before. - You and your visitor will be asked to self-screen and do not enter if you have any COVID symptoms. - We encourage only one visitor and NO visitors under age 16 are allowed at this time. Your visitor will receive communication by the phone number that is given day of service. - The patient visitor is requested to social distance or may leave the building when not with patient due to restrictions. - A mask is OPTIONAL within the hospital. Patients may have clear liquids (water, carbonated beverages, clear teas, apple juice) until 3 hours prior to surgery with a maximum of 20 ounces. - No food from midnight until time of surgery Take the following medications with a SIP of water the morning of surgery: SERTRALINE Medications to discontinue per physician: VITAMINS/SUPPLEMENTS Date to take last dose: 07/01/22 Please no make-up, nail uzbek, hairspray, perfume, deodorant, or body powder the day of surgery. No jewelry (including any body piercings) or valuables the day of surgery, leave them at home. Please take a shower or bath the night before, or the morning of, surgery with an antibacterial soap. Wear comfortable, loose fitting clothing. - Jewelry must be removed prior to entering the operating room. Rings and piercings that are not removed may be cut off. - The hospital will not accept responsibility for valuables. - Please leave all valuables, including medications, at home the day of surgery. If you are going home after surgery, a licensed security patrol driver must drive you home. - NO public transportation without another adult. - We recommend that an adult stay with you for 24 hours following discharge. - We also recommend that you do not drive, make important decision, drink alcoholic beverages, or take any drugs that were not prescribed by your health care provider for at least 24 hours after your discharge time. Follow any additional instructions given to you from your surgeon. If you or anyone in your household have experienced Covid symptoms in the past week, please notify your surgeon or the nurse liaison at the phone number below for possible testing. Telephone instructions given to PT - LORE BAPTISTE and asked if any additional questions and then verbalized understanding. Patient advised to call surgeon office or pre surgery nurse liaison [phone] if any additional questions.
[2022-07-05] VITALS (7 sets, daily range): BP systolic 120–131; BP diastolic 68–82; PULSE 72–88; RESP 12–20; TEMP 36.2–36.4; O2SAT 92–98
[2022-07-05] MEDS: ACETAMINOPHEN 500 MG TABLET 1000 MG PO (06:35)
[2022-07-05] MEDS: LACTATED RINGERS 1,000 ML 30 ML IV CONT (06:40)
[2022-07-05 06:48] LABS: Glucose Point of Care 86 mg/dl (65-105)
--- NOTE | 2022-07-05 06:51 | WPDANESEPPF ---
Anes - Initial Pre Proc Eval Procedure: Operation Date: 07/05/22 07:30 Proposed Procedures p Right Carpal Tunnel Release - Armani Orellana MD Date/Time: 07/05/22 06:51 Surgeon: Armani Orellana MD Pre Op Diagnosis: Rt Carpal Tunnel Syndrome Patient Data Age: 37 Gender: F Height: 1.78 m Weight: 117.9 kg Allergies Allergy/AdvReac Type Severity Reaction Status Date / Time codeine Allergy Intermediate Nausea and Verified 07/05/22 06:24 Vomiting morphine Allergy Intermediate Nausea and Verified 07/05/22 06:24 Vomiting Home Medications Medication Instructions Recorded Confirmed Type pantoprazole 40 mg tablet,delayed 40 mg PO QAM #90 tabs 08/03/19 07/05/22 Rx release pen needle, diabetic 32 gauge x #100 ea 08/03/19 04/23/22 Rx 1/6 (NovoFine Plus) blood sugar diagnostic (OneTouch #10 ea 08/10/19 04/23/22 History Verio test strips) dulaglutide 1.5 mg/0.5 mL 1.5 mg (0.5 mL) subcut WEEKLY #2 mL 09/18/19 07/05/22 Rx subcutaneous pen injector (Trulicity) sitagliptin phosphate 50 1 tablet PO BID 04/26/21 07/05/22 History mg-metformin 1,000 mg tablet (Janumet) insulin glargine-yfgn 100 unit/mL 80 unit subcut DAILY 10/05/21 06/29/22 History (3 mL) subcutaneous pen (Semglee (insulin glargine-yfgn) Pen) multivitamin 1 tablet PO DAILY 11/06/21 07/05/22 History sertraline 50 mg tablet (Zoloft) 50 mg PO DAILY 12/18/21 07/05/22 History Immune 24 2 tab-cap PO DAILY 01/15/22 06/29/22 History Women's Probiotic and Prebiotic 1 tab-cap PO DAILY 01/15/22 07/05/22 History green tea leaf extract and green 1 tablet PO DAILY 01/15/22 07/05/22 History tea leaf 1,000 mg tablet pravastatin 10 mg tablet 20 mg PO DAILY 01/15/22 07/05/22 History vitamin B complex (B 1 tablet PO DAILY 01/15/22 07/05/22 History Complex-Vitamin B12 tablet) spironolactone 50 mg tablet 50 mg PO Q12H #90 tabs 05/01/22 07/05/22 Rx Laboratory Tests 07/05/22 06:45 POC Capillary Glucose 86 mg/dl mg/dl (65-105) Patient hx anesthesia problems: none Family hx anesthesia problems: none Results Review: All pre-operative results and documents have been reviewed as part of the pre-operative evaluation. [facility] Past Medical History Medical History Anxiety and depression Carpal tunnel syndrome, bilateral Carpal tunnel syndrome, left Diabetes GERD (gastroesophageal reflux disease) IBS (irritable bowel syndrome) GONSALES (nonalcoholic steatohepatitis) Obesity PCOS (polycystic ovarian syndrome) Right carpal tunnel syndrome Wears glasses Surgical History Surgical History H/O LEEP (~08/26/02) Dysplasia History of gynecological procedure (01/28/19) mirena iud insertion History of gynecological procedure (12/14/20) Vulvar biopsy ; Benign History of sinus surgery History of tonsillectomy (08/26/94) Family History Family History Grandparent Lung cancer Breast cancer maternal grandmother Diabetes mellitus Pancreatic cancer Liver cancer Mother Crohn's disease Social History Social History Years smoked: 8 Smoking status: Former smoker Tobacco type: cigarettes Smoking end date: 04/15/09 Alcohol intake: current Alcohol use details: RARE Substance use: never Substance use type: does not use Living arrangements: with family Additional living arrangements comments: spouse 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
[2022-07-05] MEDS: KETOROLAC 15 MG/ML VIAL (*BKC) IV PUSH (06:56)
--- NOTE | 2022-07-05 07:06 | WPDHPUPDATE1 ---
History and Physical Update Update Date/Time: 07/05/22 07:06 History and Physical has been reviewed, including an updated exam of the patient. There are NO changes in the patient's condition. Risks, benefits, and alternatives have been discussed and questions answered. Patient agrees to proceed with procedure.
[2022-07-05] MEDS: ceFAZolin 2 GM/D5W 50 ML 2 GM/50 ML BAG IVPB (07:29)
[2022-07-05] MEDS: BUPIVACAINE/EPINEPHRINE 0.25% 50 ML VIAL 10 ML INFILTRATE (07:52)
--- NOTE | 2022-07-05 08:07 | P.OP_ITS ---
Procedure Note - Detailed Date of Procedure 07/05/22 Pre-op Diagnosis Rt Carpal Tunnel Syndrome Post-op Diagnosis Same Procedure Performed Right carpal tunnel release Surgeon Armani Orellana MD Outsole Beveler 1st assistant clinical nurse manager Anesthesia General Indications 37-year-old with electrodiagnostic evidence of bilateral carpal tunnel syndrome. Left wrist carpal tunnel release done previously with good result. Patient still with symptoms on the right hand. Presents for operative treatment. Description of Procedure After informed consent was given, the operative extremity was marked in the preoperative holding area. Intravenous antibiotics were given. The patient was taken to the operating room and underwent General anesthesia by the anesthesia team. A time-out was performed confirming patient, procedure, and operative site. Local infiltrate at the carpal tunnel was done with 0.5% marcaine. Prepping and draping was done using chloraprep skin solution with usual surgical sterile technique. Anatomic landmarks marked on skin. Hand was exsanguinated and arm tourniquet inflated to 225mmHg. Incision was made with #15 blade knife in skin crease on volar palm. Hemostasis was achieved with electrocautery. Careful dissection was carried down to the transverse carpal ligament. Retractors were placed. Ligament overlying median nerve was incised in line with skin incision using cloverdale blade. Proximal and distal release was done with metzenbaum scissors under direct visualization. Mosquito clamp was placed deep to ligament to protect nerve during release. The nerve was inspected and noted to be intact with mild flattening. Tendons had good excursion. The tourniquet was then released and pressure held. Bleeding points were coagulated with bipolar cautery. The wound was thoroughly irrigated with antibiotic solution. The skin was closed with 4-0 nylon interrupted suture. A sterile dressing was applied. Good capillary refill in the fingers and thumb was noted. The patient was transported to the recovery room in stable condition. All sponge, needle, instrument counts were correct at the end of the case. Estimated Blood Loss 1 Tourniquet Time 5 Drains No Packing No Pathology None sent Complications None Condition Stable Disposition PACU
[2022-07-05 08:14] LABS: Glucose Point of Care 71 mg/dl (65-105)
--- NOTE | 2022-07-16 10:31 | PM.IMHP ---
H&P: HPI History of Present Illness Date/Time: 07/16/22 10:31 Chief Complaint: Right wrist numbness and pain Narrative: 37-year-old woman with bilateral carpal tunnel syndrome. Status post release of the left 1. Now presents for operative release of the right carpal tunnel. Still having pain, numbness and tingling. Unrelieved with bracing and injections. Review of Systems Constitutional: Constitutional: Denies fever(s) Eyes: Eyes: Denies blurry vision ENT: Reports Normal hearing present Cardiovascular: Cardiovascular: Denies chest pain and Denies dyspnea Respiratory: Respiratory: Denies dyspnea and Denies wheezing Gastrointestinal: Gastrointestinal: Denies abdominal pain Genitourinary: Genitourinary: Denies urinary urgency Musculoskeletal: Musculoskeletal: Reports as per HPI and Denies numbness Integumentary/Breasts: Skin/Breast: Denies changing lesions and Denies sores Neurologic: Reports Normal hearing present, Denies behavioral changes, Denies confusion, Denies numbness and Denies convulsions Psychiatric: Psychiatric: Denies behavioral changes, Denies confusion and Denies hallucinations Endocrine: Endocrine: Denies heat intolerance Hematologic/Lymphatic: Hematologic/Lymphatic: Denies easy bleeding Allergic/Immunologic: Allergic/Immunologic: Denies wheezing PMFSH Past Medical History Medical History Anxiety and depression Carpal tunnel syndrome, bilateral Carpal tunnel syndrome, left Diabetes GERD (gastroesophageal reflux disease) IBS (irritable bowel syndrome) GONSALES (nonalcoholic steatohepatitis) Obesity PCOS (polycystic ovarian syndrome) Right carpal tunnel syndrome Wears glasses Surgical History Surgical History H/O LEEP (~08/26/02) Dysplasia History of gynecological procedure (01/28/19) mirena iud insertion History of gynecological procedure (12/14/20) Vulvar biopsy ; Benign History of sinus surgery History of tonsillectomy (08/26/94) Family History Family History Grandparent Lung cancer Breast cancer maternal grandmother Diabetes mellitus Pancreatic cancer Liver cancer Mother Crohn's disease Social History Social History Years smoked: 8 Smoking status: Former smoker Tobacco type: cigarettes Smoking end date: 04/15/09 Alcohol intake: current Alcohol use details: RARE Substance use: never Substance use type: does not use Additional living arrangements comments: spouse 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 Gender identity (if verbalized by the patient): Female Sexual Orientation (if Verbalized by the Patient): Straight or Heterosexual Spiritual care concerns: No Meds Home Medications and Allergies Home Medications Medication Instructions Recorded Confirmed Type pantoprazole 40 mg tablet,delayed 40 mg PO QAM #90 tabs 08/03/19 07/16/22 Rx release pen needle, diabetic 32 gauge x #100 ea 08/03/19 07/16/22 Rx 1/6 (NovoFine Plus) blood sugar diagnostic (OneTouch #10 ea 08/10/19 07/16/22 History Verio test strips) dulaglutide 1.5 mg/0.5 mL 1.5 mg (0.5 mL) subcut WEEKLY #2 mL 09/18/19 07/16/22 Rx subcutaneous pen injector (Trulicity) sitagliptin phosphate 50 1 tablet PO BID 04/26/21 07/16/22 History mg-metformin 1,000 mg tablet (Janumet) insulin glargine-yfgn 100 unit/mL 80 unit subcut DAILY 10/05/21 07/16/22 History (3 mL) subcutaneous pen (Semglee (insulin glargine-yfgn) Pen) multivitamin 1 tablet PO DAILY 11/06/21 07/16/22 History sertraline 50 mg tablet (Zoloft) 50 mg PO DAILY 12/18/21 07/16/22 History Immune 24 2 tab-cap PO DAILY 01/15/22 07/16/22 History Women's Probiotic and Prebiotic 1 tab-cap PO DAILY 01/15/22 07/16/22 History green tea l
== END 2022-07-05 09:25 | disposition home or self-care (01) ==
PROVIDERS: PCP Family Medicine; Visit Provider Orthopaedic Surgery
PROC: (CPT 64721; principal; 2022-07-05 07:30)
DX: G56.01 Carpal tunnel syndrome, right upper limb (principal); E11.9 Type 2 diabetes mellitus without complications; K75.81 Nonalcoholic steatohepatitis (NASH); E28.2 Polycystic ovarian syndrome; F41.8 Other specified anxiety disorders; K21.9 Gastro-esophageal reflux disease without esophagitis; E66.9 Obesity, unspecified; Z68.36 Body mass index [BMI] 36.0-36.9, adult; Z79.899 Other long term (current) drug therapy; Z79.4 Long term (current) use of insulin; Z87.891 Personal history of nicotine dependence
CPT/HCPCS: 64721; 82948; A9270; J0690; J1885; J2250; J2405; J2704; J3010; J7120

== ENCOUNTER 2022-10-31 08:42 | Outpatient (CLI) | payer OTHER, SELFPAY | END 2022-10-31 08:43 | disposition home or self-care (01) | LOC: ANHAUDIO 08:42 | PROVIDERS: PCP Family Medicine; Visit Provider Otolaryngology | DX: H93.13 Tinnitus, bilateral (principal); H90.3 Sensorineural hearing loss, bilateral | CPT/HCPCS: 92557; 92567 ==

== ENCOUNTER 2024-07-06 10:28 | Outpatient (CLI) | payer OTHER, SELFPAY ==
--- NOTE | ~2024-07-06 | MM_ITS ---
EXAMINATION: MM screening huber BI w maryanne HISTORY: Screening mammogram TECHNIQUE: Craniocaudal and mediolateral oblique 3-D tomosynthesis images were obtained and synthetic 2-D images were generated. CAD analysis was submitted and interpreted. COMPARISON: No prior mammogram is available for comparison at this institution. BREAST PARENCHYMAL COMPOSITION:Not Dense. There are scattered areas of fibroglandular density. FINDINGS: There is an area of asymmetric increased density in the lower, inner right breast. Low-dens ity reniform mass in the left breast is compatible with benign intramammary lymph node. No suspicious mammographic calcifications in either breast. IMPRESSION: Ill-defined asymmetric density at the lower, inner right breast. Spot compression views and ultrasou nd are recommended for further evaluation. BI-RADS Category 0: Incomplete: Needs additional imaging evaluation. Reviewed, dictated and finalized at [facility]. RIAL STOCKKEEPER YARD IMPRESSION: Ill-defined asymmetric density at the lower, inner right breast. Spot compress ion views and ultrasound are recommended for further evaluation. BI-RADS Category 0: Incomplete: Needs additional imaging evaluation.
== END 2024-07-06 10:29 | disposition home or self-care (01) ==
LOC: CHSIMG 10:28
PROVIDERS: PCP Family Medicine; Visit Provider Obstetrics & Gynecology
DX: Z12.31 Encounter for screening mammogram for malignant neoplasm of breast (principal); R92.8 Other abnormal and inconclusive findings on diagnostic imaging of breast
CPT/HCPCS: 77063; 77067

== ENCOUNTER 2024-07-17 08:16 | Outpatient (CLI) | payer OTHER, SELFPAY ==
--- NOTE | ~2024-07-17 | MMUS_ITS ---
EXAMINATION: MM diagnostic huber RT w maryanne, US breast RT limited HISTORY: Asymmetric density at the lower, inner right breast TECHNIQUE: Additional 3-D tomosynthesis images of the right breast were performed and synthetic 2-D i mages were generated. CAD analysis was submitted and interpreted. High resolution limited right breas t ultrasound was performed. COMPARISON: 07/06/2024 BREAST PARENCHYMAL COMPOSITION:Not Dense. There are scattered areas of fibroglandular density. FINDINGS: MAMMOGRAPHIC FINDINGS: Spot compression views demonstrate a persistent low-density 6 mm mass at the area of concern. ULTRASOUND: Sonographic imaging demonstrates a 6 mm mildly complex cyst at the 4:00 position right breast, 1 cm f rom the nipple. There is possible focal wall calcification and mild irregularity of the cyst. There m ay be a cluster of cysts adjacent. IMPRESSION: Probable benign cluster of cysts and mildly complex cyst at the right breast 4:00 position, as detbernardo led above. Six-month follow-up right mammography/sonography recommended to reassess. BI-RADS category 3, probably benign findings. Reviewed, dictated and finalized at location M. STANT DIRECTOR OF FINANCIAL AID IMPRESSION: Probable benign cluster of cysts and mildly complex cyst at the right breast 4 :00 position, as detailed above. Six-month follow-up right mammography/sonograp hy recommended to reassess. BI-RADS category 3, probably benign findings.
== END 2024-07-17 08:17 | disposition home or self-care (01) ==
LOC: CHSIMG 08:17
PROVIDERS: PCP Family Medicine; Visit Provider Obstetrics & Gynecology
DX: R92.8 Other abnormal and inconclusive findings on diagnostic imaging of breast (principal)
CPT/HCPCS: 76642; 77061; 77065; G0279

== ENCOUNTER 2025-05-07 10:56 | Outpatient (NON) | payer OTHER, SELFPAY ==
--- OUTSIDE RECORDS SUMMARY | 2025-05-07 11:58 | XMS_ITS | Encounter Summary ---
Author Organization [facility] Address [address] [place] [address] Care Team Providers Care Smoking Pipe Maker Name Role Phone Sherlyn Cagle MD Primary Care Provider [phone] Encounter Details Date Type Department Care Team (Late st Contact Info) Description 09/09/2024 Results Follow-Up [facility] at [facility] [place] [address] [place] [address] Sherlyn Cagle MD [address] [place] [address] MICROALBUMIN/CREATIN INE RATIO, RANDOM UR, HEMOGLOBIN A1C, TSH, Additional followed-up results: 4 Social History Tobacco Use Types Packs/Day Years Used Date Smoking Tobacco: Former Cigarettes 0.5 10 0 04/15/1999 - 04/15/2009 Smokeless Tobacco: Never Alcohol Use Standard Drinks/Week Comments Yes 0 (1 standard drink = 0.6 oz pur e alcohol) Socially Comments No Sex and Gender Information Value Date Recorded Sex Assigned at Female 05/13/2024 9:01 AM CDT Legal Sex Female 9:47 AM SOLAR PROJECT COORDINATION SPECIALIST Gender Identity Female 05/13/2024 9:01 AM CDT Sexual Orientation Straight 05/13/2024 9: 01 AM CDT documented as of this encounter Miscellaneous Notes * Result Encounter Note - Sherri Raines RN - 09/24/2024 7:33 AM SOLAR PROJECT COORDINATION SPECIALIST Results faxed to hazmat technician R PROJECT COORDINATION SPECIALIST * Result Encounter Note - Sherri Raines, RN - 09/16/2024 1:22 PM SOLAR PROJECT COORDINATION SPECIALIST Spoke to pt giving this information. Pt verbalized understanding. Repeat lab appt scheduled for 09/22/2024 at 8:40 AM R PROJECT COORDINATION SPECIALIST * Result Encounter Note - Abby Angel - 09/09/2024 1:22 PM CST This [facility] called [facility]. For unknown reasons, test were not ran but specimans were kept. [facility] will berunning the tests today. R PROJECT COORDINATION SPECIALIST documented in this encounter Plan of Treatment Upcoming Encounters Date Type Department Care Team (Late st Contact Info) Description 08/30/2025 8:20 AM SOLAR PROJECT COORDINATION SPECIALIST Procedure visit [facility] at [facility] [place] [address] [place] [address] 09/02/2025 8:30 AM SOLAR PROJECT COORDINATION SPECIALIST Office Visit [facility] at [facility] [place] [address] [place] [address] Sienna Costa, ANP [address] [facility] Estefania Mccrary [address] [address] documented as of this encounter Visit Diagnoses Not on filedocumented in this encounter Care Teams Smoking Pipe Maker Relationship Specialty Start Date End Date Sherlyn Cagle MD [address] [place] [address] PCP - General Internal Medicine 03/03/24 documented as of this encounter
--- OUTSIDE RECORDS SUMMARY | 2025-05-07 11:58 | XMS_ITS | Clinical Summary ---
Author Organization [facility] Address [address] [place] [address] Care Team Providers Care Vulcanized Fiber Unit Operator Name Role Phone Sreekanth Fountain MD Primary Care Provider [phone] Source Comments [facility],non-owned Affiliates and Associated Physician Practices is amultiple site organization consisting of ambulatory clinics and hospital sitesin [place] and [place]. This disclosure is being madepursuant to the Care Everywhere program and may not contain all information available regarding this patient. Last updated 18.[facility] Allergies Active Allergy Reactions Criticality Noted Date Comments Codeine Nausea and/or Vomiting 04/03/2013 Pt reports getting violently ill Morphine Nausea and/or Vomiting 04/03/2013 Pt reports getting violently ill Medications * Be aware that medications may not be up to date on this document. Alwaysverify current medications with the patient. insulin NPH (HUMULIN N; NOVOLIN N) injection Inject 50 Units subcutaneously daily before breakfast. 50 UNITS IN AM 60 UNITS IN PM Active metFORMIN (GLUCOPHAGE) 1000 MG tablet Take 1,000 mg by mouth 2 times daily with morning and evening meal. Active Vit-Fe Fumarate-FA ( VITAMIN) 28-0.8 MG tablet Take 1 Tab by mouth once daily. Active insulin lispro (HUMALOG) injection Inject subcutaneously. 10 UNITS IN AM 30 UNITS IN PM Active omeprazole (PRILOSEC) 20 MG capsuleIndicat ions:GERD-Rela salomon Laryngitis (Inactive) Take 20 mg by mouth daily before breakfast. Indications: GERD-Related Laryngitis Active Active Problems Patient Care Coordination No te Formatting of this note migh t be different from the original. Weekly BPP with twice weekly NST being done at [facility]. Follow-up ultrasound to assess interval growth due 10/27/13. Problem Noted Date Diagnosed Date Supervision of other high-risk 013 Overview (07/03/2015): Anatomy wnl but limited cardiac views 06/22, repeat wnl 07/14 746g 59% Obesity 03/20/2013 Irritable bowel syndrome complicating 03/13/2013 Fatty liver disease, nonalcoholic 03/13/2013 Type 2 diabetes mellitus 03/13/2013 Social History Tobacco Use Types Packs/Day Years Used Date Smoking Tobacco: Former Cigarettes Q uit: 04/15/2009 Alcohol Use Standard Drinks/Week Comments No 0 (1 standard drink = 0.6 oz pur e alcohol) Comments No Sex and Gender Information Value Date Recorded Sex Assigned at Not on file Legal Sex Female 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 Gender Identity Not on file Sexual Orientation Not on file Last Filed Vital Signs Vital Sign Reading Time Taken Comments Blood Pressure 130/80 12/07/2013 12:51 PM CDT Pulse 84 12/07/2013 12:51 PM CDT Temperature 36.7 C (98 F) 12/07/2013 12:51 PM CDT Respiratory Rate 20 12/07/2013 12:5 1 PM CDT Oxygen Saturation 98% 09/08/2013 3:40 PM INSPECTOR AND ADJUSTER [employer] HEAD Inhaled Oxygen Concentration - - Weight 115.5 kg (254 lb 9.6 oz) 014 12:51 PM CDT Height 177.8 cm (5' 10) 12/07/2013 12: 51 PM CDT Body Mass Index 36.53 12/07/2013 12:51 PM CDT Plan of Treatment Health Maintenance Due Date Last Done Comments LIPID TESTING 1984 MAMMOGRAM 1984 HIV SCREENING 1999 HEPATITIS C SCREENING 06/01/2002 DTAP/TDAP/TD VACCINES (1 - Tdap) 2003 HEPATITIS B VACCINE (1 of 3 - 19+ 3-dose series) 2003 HPV VACCINE (1 - 3-dose SCDM series) 2011 DEPRESSION SCREENING 08/26/2024 COVID-19 VACCINE (1 - 2023-2 5 season) 2025 INFLUENZA VACCINE (#1) 2025 ZOSTER VACCINE (1 of 2) 2034 HIB VACCINE Aged Out No longer eligi ble based on patient's age to complete this topic MENINGOCOCCAL (Group B) VACC INE SHARED DECISION-MAKING Aged Out No longer eligibl e based on patient's age to complete this topic MENINGOCOCCAL GROUPS A/C/Y/W VACCINE Aged Out No longer eligible b ased on patient's age to complete this topic PNEUMOCOCCAL VACCINE Aged Out No long er eligible based on patient's age to complete this topic Insurance Care Teams Vulcanized Fiber Unit Operator Relationship Specialty Start Date End Date Sreekanth Fountain MD PCP - General Obstetrics and Gynecology 09/01/13
--- OUTSIDE RECORDS SUMMARY | 2025-05-07 11:58 | XMS_ITS ---
Author Organization Unknown ENCOUNTERS Encounter Performer Location Date Diagnosis Diagnosis Status Outpatient [facility] [address] [id number] Outpatient [facility] [address] [place] [address] [id number] [facility] Outpatient [facility] [address] [place] [address] [id number] PRIYANKA Outpatient [facility] [address] [place] [address] [id number] PRIYANKA Outpatient [facility] [address] [place] [address] [id number] PRIYANKA Outpatient [facility] [address] [place] [address] [id number] [place]ANK[facility] Outpatient [facility] [address] [place] [phone] [id number] [facility] Outpatient [facility] [address] [place] [phone] [id number] [facility] Outpatient [facility] [address] [place] [address] [id number] PRIYANKA Outpatient [facility] [address] [place] [phone] [id number] PRIYANKA Outpatient [facility] [address] [place] [phone] [id number] PRIYANKA Outpatient [facility] [address] [place] [address] [id number] PRIYANKA *Note: Encounters from your own facility or health system may be excluded. Allergies, Adverse Reactions, Alerts Allergen Type Severity Identification Date codeine drug allergy 3 [id number] morphine drug allergy 3 [id number] lisinopril drug allergy 3 [id number] Medications Name Date Quantity Days Supplied GPI Number
--- OUTSIDE RECORDS SUMMARY | 2025-05-07 11:58 | XMS_ITS | Encounter Summary ---
Author Organization [facility] Address [address] [place] [address] Care Team Providers Care Lens Block Gauger Name Role Phone Sreekanth Fountain MD Primary Care Provider [phone] Encounter Details Date Type Department Care Team (Late st Contact Info) Description 10/06/2013 Telephone [facility] Women's Health Maternal & Care [address] [place] [id number] Анна [place], [facility] [place] [address] [place] [address] Social History Tobacco Use Types Packs/Day Years Used Date Smoking Tobacco: Former Cigarettes Q uit: 04/15/2009 Alcohol Use Standard Drinks/Week Comments No 0 (1 standard drink = 0.6 oz pur e alcohol) Comments Yes Sex and Gender Information Value Date Recorded Sex Assigned at Not on file Legal Sex Female 5:38 AM HAND ENDBAND CUTTER Gender Identity Not on file Sexual Orientation Not on file documented as of this encounter Plan of Treatment Not on file documented as of this encounter Visit Diagnoses Not on filedocumented in this encounter Care Teams Lens Block Gauger Relationship Specialty Start Date End Date Sreekanth Fountain MD PCP - General Obstetrics and Gynecology 09/01/13 documented as of this encounter
--- OUTSIDE RECORDS SUMMARY | 2025-05-07 11:58 | XMS_ITS | Clinical Summary ---
Author Organization [facility] [employer] [place] Address [address] [place] [address] Care Team Providers Care Rotary Shear Worker Helper Name Role Phone Sherlyn Cagle MD Primary Care Provider [phone] Allergies Active Allergy Reactions Criticality Noted Date Comments Codeine Nausea and Vomiting Low 11/04/2019 Lisinopril Other (See Comments) 09/03/2023 Fatigue, sleepiness. Morphine Nausea and Vomiting Low 11/04/2019 Medications ascorbic acid, vitamin C, (VITAMIN C) 1,000 mg Tablet Take 1,000 mg by mouth 2 times daily. Active Green Tea [place] & Tea [place] Extr 1,000 mg Tablet Take by mouth 2 times daily. Active Lactobacillus acidophilus (Probiotic) 10 billion cell Capsule Take by mouth daily. Active cyanocobalamin, vitamin B-12, 5,000 mcg Tablet, Rapid Dissolve Take by mouth daily. Active multivitamin (DAILY-ANN MARIE) tablet Take 1 Tablet by mouth daily. Active Insulin [place], Disposable, (Eva Pen Needle) 32 gauge x 5/32 Needle Use as needed with insulin 100 Each 2 023 Active levonorgestreL (Mirena) 21 mcg/24 hours (8 yrs) 52 mg IUD Mirena 21 mcg/24 hours (8 yrs) 52 mg intrauterine device Take 1 device by intrauterine route. Active spironolactone (ALDACTONE) 50 mg tablet Take 50 mg by mouth every 12 hours. 023 Active Blood-Glucose Meter,Continuous (Dexcom G6 Insulation Blower)Indicati ons:Type 2 diabetes mellitus without complication, with long-term current use of insulin ([facility]) Use to monitor blood glucose continuously throughout the day. 1 Each Active Blood-Glucose Transmitter (Dexcom G6 Transmitter) Device Fasten on top of the sensor to wirelessly send data to the master pilot. Must be changed every 3 months. 1 Each 3 Active Jardiance 25 mg tablet Take 25 mg by mouth daily. Active blood sugar diagnostic (FreeStyle Test) Strip see administration instructions. Use to test blood sugar twice daily, fasting in the morning and 2 hours after a meal 100 Each Active OneTouch Verio Reflect Meter DIRECTED TO CHECK BLOOD SUGARS Active Baqsimi 3 mg/actuation [place], Non-Aerosol 3 MG INTRANASALLY ONCE A SINGLE DOSE Active Ozempic 1 mg/dose (4 mg/3 mL) Pen Injector Inject 1 mg by subcutaneous injection every 7 days. Active Blood-Glucose Sensor (Dexcom G7 Sensor) Device Active fluconazole (DIFLUCAN) 200 mg tablet TAKE 1 TABLET EVERY 48 HOURS Active pravastatin (PRAVACHOL) 20 mg tabletIndications :Mixed hyperlipidemia Take 1 Tablet (20 mg) by mouth daily at bedtime. 90 Tablet 025 Active sertraline (ZOLOFT) 100 mg tabletIndications :Recurrent major depressive disorder, in full remission TAKE 1 TABLET BY MOUTH EVERY DAY 90 Tablet 025 Active pantoprazole (PROTONIX) 40 mg Tablet, Delayed Release (E.C.) TAKE 1 TABLET BY MOUTH EVERY DAY 90 Tablet 1 025 Active pantoprazole (PROTONIX) 40 mg Tablet, Delayed Release (E.C.) TAKE 1 TABLET BY MOUTH EVERY DAY 90 Tablet 025 2024 Discontinued Active Problems Problem Noted Date Diagnosed Date Refused pneumococcal vaccination 03/03/2024 PCOS (polycystic ovarian syndrome) 09/03/2023 Mixed hyperlipidemia 03/07/2023 Tinea pedis 08/08/2022 DM (diabetes mellitus), type 2 11/29/2021 Recurrent major depressive disorder, in partial remission 11/29/2021 Gastroesophageal reflux disease 11/29/2021 GONSALES (nonalcoholic steatohepatitis) 11/29/2021 Encounters Date Type Department Care Team Description 05/03/2025 Refill [facility] [place] [address] [place] [address] Sherlyn Cagle MD 04/28/2025 8:20 AM CDT Procedure visit [place] [address] [place] [address] Encounter for issue of repeat prescription (Primary Dx) 04/27/2025 External Device Data STL ABSTRACTION Provider, Abstract 04/27/2025 Telephone [facility] [place] [address] [place] [address] Sherlyn Cagle MD Medication Review 04/13/2025 External Device Data STL ABSTRACTION Provider, Abstract 04/06/2025 Refill [facility] [place] [address] [place] [address] Sienna Tillman, ALTAGRACIA Recurrent major depressive disorder, in full remission 03/23/2025 9:00 AM CDT Procedure visit [facility] [place] [address] [place] [id number] Issue of repeat prescription for medication (Primary Dx) 03/21/2025 [facility] [place] [address] [place] [address] Sienna Tillman, ALTAGRACIA Recurrent major depressive disorder, in full remission; Mixed hyperlipidemia 03/10/2025 External Device Data STL ABSTRACTION Provider, Abstract 03/09/2025 External Device Data STL ABSTRACTION Provider, Abstract 03/02/2025 8:30 AM CDT Office Visit [facility] [place] [address] [place] [id number] Sienna Costa ANP Type 2 diabetes mellitus without complication, without long-term current use of insulin ([facility]) (Primary Dx); Recurrent major depressive disorder, in full remission; Mixed hyperlipidemia; Gastroesophageal reflux disease without esophagitis; PCOS (polycystic ovarian syndrome) 02/09/2025 External Device Data STL ABSTRACTION Provider, Abstract from Last 3 Months Immunizations Immunization Administration Dates Next Due (ADACEL/BOOSTRIX)(10 YR UP) TDAP VACCINE, 0.5ML, IM 09/03/2023,08/26/2013,06/09/2008 (PFIZER)(12 YR UP) COVID-19 VACCINE - EMERGENCY USE AUTHORIZATION, MRNA, [id number](PF) 30 MCG/0.3 ML IM SUSP 01/27/2021 (TDVAX)(7 YRS UP) TETANUS AN D DIPHTHERIA TOXOIDS, ADSORBED (2 LF OF TETANUS TOXOID AND 2 LF OF DIPHTHERIA TOXOID), 0.5ML (PF), IM 01/30/1999 Hepatitis A Vaccine 09/09/2003,03/09/2003 Hepatitis B Vaccine 09/09/2003,04/09/2003,2002 Family History Medical History Relation Name Comments Unknown Father Donor No Known Problems Half-Brother Lung Cancer Maternal Grandfather Carl Breast Cancer Maternal Grandmother Juli Diabetes Maternal Grandmother Juli Liver Cancer Maternal Grandmother Juli Pancreatic Cancer Maternal Grandmother Juli Crohn's Disease Mother No Known Problems Son Messi Relation Name Status Comments Father Donor Other Half-Brother Alive Maternal Grandfather Carl Maternal Grandmother Juli Mother Alive Son Messi Alive Social History Tobacco Use Types Packs/Day Years Used Date Smoking Tobacco: Former Cigarettes 0.5 10 0 04/15/1999 - 04/15/2009 Smokeless Tobacco: Never Tobacco Cessation:Counseling Given: Not Answered Alcohol Use Standard Drinks/Week Comments Yes 0 (1 standard drink = 0.6 oz pur e alcohol) Socially Comments No Sex and Gender Information Value Date Recorded Sex Assigned at Female 05/13/2024 9:01 AM CDT Legal Sex Female 9:47 AM RESERVATIONS SALES SUPERVISOR Gender Identity Female 05/13/2024 9:01 AM CDT Sexual Orientation Straight 05/13/2024 9: 01 AM CDT Last Filed Vital Signs Vital Sign Reading Time Taken Comments Blood Pressure 118/68 03/02/2025 8:16 AM CDT Pulse 76 03/02/2025 8:16 AM CDT Temperature 36.3 C (97.3 F) 03/02/2025 8:16 AM CDT Respiratory Rate 16 03/02/2025 8:16 AM CDT Oxygen Saturation 99% 03/02/2025 8:16 AM CDT Inhaled Oxygen Concentration - - Weight 104.8 kg (231 lb) 03/02/2025 8:16 AM CDT Height 177.8 cm (5' 10) 03/02/2025 8:16 AM CDT Body Mass Index 33.15 03/02/2025 8:16 AM CDT Plan of Treatment Upcoming Encounters Date Type Department Care Team (Late st Contact Info) Description 08/30/2025 8:20 AM RESERVATIONS SALES SUPERVISOR Procedure visit [facility] [employer] [place] [address] [place] [address] 09/02/2025 8:30 AM RESERVATIONS SALES SUPERVISOR Office Visit [facility] [employer] [place] [address] [place] [phone] Sienna Costa, ANP [address] [place] [address] Health Maintenance Due Date Last Done Comments HPV/Cotest (21-29) 2005 HPV VACCINES (1 - 3-dose SCD M series) 2011 HPV/Cotest (30-65) 2014 Preventative Visit- Commercial 08/26/2024 DIABETES ANNUAL RETINAL EXAM 11/24/2024 11/25/2023, 01/01/2023 DIABETES HBA1C Q 6 MONTHS 03/03/20252024, 03/03/2024, 09/23/2023, Additional history exists INFLUENZA VACCINE (#1) 2025 COVID-19 Vaccine (2024-2 6 season) 2025 09/08/2021, 02/17/2021, 01/27/2021 BREAST CANCER SCREENING 07/06/2025 07/06/2024 DIABETES ANNUAL FOOT EXAM 09/03/20252024, 03/07/2023, 03/07/2023, Additional history exists DIABETES MICROALBUMIN ANNUAL SCREEN 09/03/2025 09/03/2024, 09/23/2023, 03/22/2022, Additional history exists LDL CHOLESTEROL ANNUAL 09/22/2025 , 09/22/2024, 03/03/2024, Additional history exists CERVICAL CANCER SCREENING 12/02/2026 PAP SMEAR 12/02/2026 12/03/2023 (Prev iously completed) DTAP/TDAP/TD VACCINES (5 - T d or Tdap) 09/03/2033 09/03/2023, 08/26/2013, 06/09/2008, Additional history exists HEPATITIS B VACCINES Completed 09/09/2003, 04/09/2003, 03/09/2003 Procedures Procedure Name Priority Date/Time Associated Diagnosis Comments LIPID PANEL Routine 09/22/2024 8:29 AM RESERVATIONS SALES SUPERVISOR Screening for condition HEMOGLOBIN A1C Routine 09/03/2024 9:54 AM RESERVATIONS SALES SUPERVISOR Type 2 diabetes mellitus without complication, without long-term current use of insulin (CMS/HCC) MICROALBUMIN/CREATIN INE RATIO, RANDOM UR Routine 09/03/2024 9:54 AM RESERVATIONS SALES SUPERVISOR Type 2 diabetes mellitus without complication, without long-term current use of insulin (CMS/HCC) HM DIABETES EYE EXAM Routine 01/01/2023 1:54 PM CDT from Last 3 Months or Most Recently Relevant to Health Maintenance Results * LIPID PANEL (09/22/2024 8:29 AM RESERVATIONS SALES SUPERVISOR) CHOLESTEROL TNP mg/dL [facility] Comment: TEST NOT PERFORMED Duplicate test. HDL TNP mg/dL [facility] Comment: TEST NOT PERFORMED Duplicate test. TRIGLYCERIDE TNP mg/dL [facility] Comment: TEST NOT PERFORMED Duplicate test. LDL CALCULATED TNP mg/dL (calc) [facility] Comment: TEST NOT PERFORMED Duplicate test. CHOL/HDL RATIO TNP (calc) [facility] Comment: TEST NOT PERFORMED Duplicate test. NON-HDL CHOLESTEROL TNP mg/dL (calc) [facility] Comment: TEST NOT PERFORMED Duplicate test. Test Performed at: [facility] [address] [place] [address] Ozzie Hull MD Blood 09/22/2024 8:29 AM RESERVATIONS SALES SUPERVISOR 09/23/2024 2:19 PM RESERVATIONS SALES SUPERVISOR Sherlyn Cagle MD CHEMISTRY ORDERABLES Final Res ult Performing Organization Address [facility] Co de Phone Number [facility] [phone] [facility] [address] [phone] * (ABNORMAL) HEMOGLOBIN A1C (09/03/2024 9:54 AM RESERVATIONS SALES SUPERVISOR) HEMOGLOBIN A1C 5.8(H) <5.7 % of total Hgb [facility] Comment: For someone without known diabetes, a hemoglobin A1c value between 5.7% and 6.4% is consistent with prediabetes and should be confirmed with a follow-up test. For someone with known diabetes, a value <7% indicates that their diabetes is well controlled. A1c targets should be individualized based on duration of diabetes, age, comorbid conditions, and other considerations. This assay result is consistent with an increased risk of diabetes. Currently, no consensus exists regarding use of hemoglobin A1c for diagnosis of diabetes for children. ESTIMATED AVERAGE GLUCOSE (MG/DL) 120 mg/dL [facility] ESTIMATED AVERAGE GLUCOSE (MMOL/L) 6.6 mmol/L [facility] Comment: NO COLLECTION DATE RECEIVED. WE HAVE USED THE DATE THE SPECIMEN WAS RECEIVED BY THIS LABORATORY THE COLLECTION DATE. IF THIS IS INCORRECT, PLEASE CONTACT CLIENT SERVICES. PHONE NUMBER: [phone] Test Performed at: [facility] [id number] [place] [address] Ozzie Hull MD Blood 09/03/2024 9:54 AM RESERVATIONS SALES SUPERVISOR 09/04/2024 12:01 PM RESERVATIONS SALES SUPERVISOR us Sherlyn Cagle MD CHEMISTRY ORDERABLES Final Res ult Performing Organization Address City/[facility]/ZIP Co de Phone Number [facility] [phone] [facility] [address] [phone] * MICROALBUMIN/CREATININE RATIO, RANDOM UR (09/03/2024 9:54 AM RESERVATIONS SALES SUPERVISOR) Creatinine, Urine 38 20 - 275 mg/dL [facility] MICROALBUMIN, URINE <0.2 See Note: mg/dL [facility] Comment: Reference Range: Reference Range Not established MICROALBUMIN/CREAT RATIO, UR NOTE <30 mg/g creat [facility] Comment: NOTE: The urine albumin value is less than 0.2 mg/dL therefore we are unable to calculate excretion and/or creatinine ratio. The ADA defines abnormalities in albumin excretion as follows: Albuminuria Category Result (mg/g creatinine) Normal to Mildly increased <30 Moderately increased 30-299 Severely increased > OR = 300 The ADA recommends that at least two of three specimens collected within a 3-6 month period be abnormal before considering a patient to be within a diagnostic category. Test Performed at: [facility] [id number] [place] [address] Ozzie Hull MD Urine URINE SPECIMEN OBTAINED BY CLEAN CATCH PROCEDURE / Unknown 09/03/2024 9:54 AM RESERVATIONS SALES SUPERVISOR 09/04/2024 10:50 AM RESERVATIONS SALES SUPERVISOR us Sherlyn Cagle MD URINE ORDERABLES Final Result Performing Organization Address [facility]/ZIP Co de Phone Number [facility] [phone] [facility] [address] [place] [address] * DIABETES EYE EXAM (01/01/2023 1:54 PM CDT) us Abstract Provider HEALTH MAINTENANCE Edited Resu lt - Final Performing Organization Address City/[facility]/ZIP Co de Phone Number [facility] CLIA# [id number] [address] [place] [address] [place] [phone] from Last 3 Months or Most Recently Relevant to Health Maintenance Insurance ALLEGIANCE OPEN ACCESS * Guarantor: MARELY [employer]TT[employer]) Account Type Relation to Patient Date of Phone Billing Address Corporate Employer ATTN: MARYLIN PALACIO [address] [address] [facility] Care Teams Rotary Shear Worker Helper Relationship Specialty Start Date End Date Sherlyn Cagle MD [address] [place] [phone] PCP - General Internal Medicine 03/03/24
== END 2025-05-07 10:57 | disposition home or self-care (01) ==
LOC: ANHGOSHLAB 10:56
PROVIDERS: PCP Family Medicine; Visit Provider Otolaryngology
DX: J01.90 Acute sinusitis, unspecified (principal)
CPT/HCPCS: 87070; 87075; 87076; 87077; 87147; 87186; 87205

== ENCOUNTER 2025-07-19 07:44 | Outpatient (CLI) | payer OTHER, SELFPAY ==
--- OUTSIDE RECORDS SUMMARY | 2025-07-19 07:56 | XMS_ITS | Encounter Summary ---
Author Organization [facility] Address [address] [place] [address] Care Team Providers Care Lifter/Driver Name Role Phone Sreekanth Fountain MD Primary Care Provider [phone] Encounter Details Date Type Department Care Team (Late st Contact Info) Description 10/06/2013 Telephone [facility] Women's Health Maternal & Care [address] [place] [id number] Анна Bradford, [facility] [place] [address] [place] [phone] Social History Tobacco Use Types Packs/Day Years Used Date Smoking Tobacco: Former Cigarettes 0 Q uit: 04/15/2009 Alcohol Use Standard Drinks/Week Comments No 0 (1 standard drink = 0.6 oz pur e alcohol) Comments Yes Sex and Gender Information Value Date Recorded Sex Assigned at Not on file Legal Sex Female 5:38 AM PRODUCTION CLERK Gender Identity Not on file Sexual Orientation Not on file documented as of this encounter Plan of Treatment Not on file documented as of this encounter Visit Diagnoses Not on filedocumented in this encounter Care Teams Lifter/Driver Relationship Specialty Start Date End Date Sreekanth Fountain MD PCP - General Obstetrics and Gynecology 09/01/13 documented as of this encounter
--- OUTSIDE RECORDS SUMMARY | 2025-07-19 07:56 | XMS_ITS | Clinical Summary ---
Author Organization [facility] [employer] Address [address] [place] [id number] Care Team Providers Care Electro Mechanical Solar Technician Name Role Phone Sherlyn Cagle MD Primary Care Provider [phone] Allergies Active Allergy Reactions Criticality Noted Date Comments Codeine Nausea and Vomiting Low 11/04/2019 Lisinopril Other (See Comments) 09/03/2023 Fatigue, sleepiness. Morphine Nausea and Vomiting Low 11/04/2019 Medications ascorbic acid, vitamin C, (VITAMIN C) 1,000 mg Tablet Take 1,000 mg by mouth 2 times daily. Active Green Tea Waldwick & Tea Waldwick Extr 1,000 mg Tablet Take by mouth 2 times daily. Active Lactobacillus acidophilus (Probiotic) 10 billion cell Capsule Take by mouth daily. Active cyanocobalamin, vitamin B-12, 5,000 mcg Tablet, Rapid Dissolve Take by mouth daily. Active multivitamin (DAILY-ANN MARIE) tablet Take 1 Tablet by mouth daily. Active Insulin [place], Disposable, (Eva Pen Needle) 32 gauge x 5/32 Needle Use as needed with insulin 100 Each 2 11/08/19 23 Active levonorgestreL (Mirena) 21 mcg/24 hours (8 yrs) 52 mg IUD Mirena 21 mcg/24 hours (8 yrs) 52 mg intrauterine device Take 1 device by intrauterine route. Active spironolactone (ALDACTONE) 50 mg tablet Take 50 mg by mouth every 12 hours. 10/31/19 23 Active Blood-Glucose Meter,Continuous (Dexcom G6 Byproducts Maker)Indicati ons:Type 2 diabetes mellitus without complication, with long-term current use of insulin ([facility]) Use to monitor blood glucose continuously throughout the day. 1 Each 12/25/19 23 Active Blood-Glucose Transmitter (Dexcom G6 Transmitter) Device Fasten on top of the sensor to wirelessly send data to the supervising deputy. Must be changed every 3 months. 1 Each 3 12/26/19 23 Active Jardiance 25 mg tablet Take 25 mg by mouth daily. 07/09/20 23 Active blood sugar diagnostic (FreeStyle Test) Strip see administration instructions. Use to test blood sugar twice daily, fasting in the morning and 2 hours after a meal 100 Each 10/16/19 24 Active OneTouch Verio Reflect Meter DIRECTED TO CHECK BLOOD SUGARS 12/02/19 24 Active Baqsimi 3 mg/actuation [place], Non-Aerosol 3 MG INTRANASALLY ONCE A SINGLE DOSE 11/22/19 24 Active Ozempic 1 mg/dose (4 mg/3 mL) Pen Injector Inject 1 mg by subcutaneous injection every 7 days. 02/14/20 24 Active Blood-Glucose Sensor (Dexcom G7 Sensor) Device 09/26/19 24 Active fluconazole (DIFLUCAN) 200 mg tablet TAKE 1 TABLET EVERY 48 HOURS 02/16/20 25 Active sertraline (ZOLOFT) 100 mg tabletIndications :Recurrent major depressive disorder, in full remission TAKE 1 TABLET BY MOUTH EVERY DAY 90 Tablet 04/07/20 25 Active pantoprazole (PROTONIX) 40 mg Tablet, Delayed Release (E.C.) TAKE 1 TABLET BY MOUTH EVERY DAY 90 Tablet 1 05/03/20 25 Active pravastatin (PRAVACHOL) 20 mg tabletIndications :Mixed hyperlipidemia Take 1 Tablet (20 mg) by mouth daily at bedtime. 90 Tablet 06/21/20 25 Active pravastatin (PRAVACHOL) 20 mg tabletIndications :Mixed hyperlipidemia Take 1 Tablet (20 mg) by mouth daily at bedtime. 90 Tablet 03/02/20 25 025 Disconti yamileth(Reo rder) Active Problems Problem Noted Date Diagnosed Date Refused pneumococcal vaccination 03/03/2024 PCOS (polycystic ovarian syndrome) 09/03/2023 Mixed hyperlipidemia 03/07/2023 Tinea pedis 08/08/2022 DM (diabetes mellitus), type 2 11/29/2021 Recurrent major depressive disorder, in partial remission 11/29/2021 Gastroesophageal reflux disease 11/29/2021 GONSALES (nonalcoholic steatohepatitis) 11/29/2021 Encounters Date Type Department Care Team Description 07/13/2025 External Device Data [facility] ABSTRACTION Provider, Abstract 06/29/2025 External Device Data [facility] ABSTRACTION Provider, Abstract 06/23/2025 External Device Data [facility] ABSTRACTION Provider, Abstract 06/22/2025 External Device Data [facility] ABSTRACTION Provider, Abstract 06/21/2025 Refill [facility] [address] [place] [phone] Sienna Costa, ANP Mixed hyperlipidemia 05/03/2025 Refill [facility] [address] [place] [phone] Sherlyn Cagle MD 04/28/2025 8:20 AM CDT Procedure visit [facility] [address] [place] [phone] Encounter for issue of repeat prescription (Primary Dx) 04/27/2025 External Device Data [facility] ABSTRACTION Provider, Abstract 04/27/2025 Telephone [facility] [address] [place] [phone] Sherlyn Cagle MD Medication Review from Last 3 Months Immunizations Immunization Administration Dates Next Due (ADACEL/BOOSTRIX)(10 YR UP) TDAP VACCINE, 0.5ML, IM 09/03/2023,08/26/2013,06/09/2008 (PFIZER)(12 YR UP) COVID-19 VACCINE - EMERGENCY USE AUTHORIZATION, MRNA, [id number](PF) 30 MCG/0.3 ML IM SUSP 01/27/2021 (TDVAX)(7 [...] AM CDT Legal Sex Female 9:47 AM RESEARCH ASSISTANT PROFESSOR Gender Identity Female 05/13/2024 9:01 AM CDT [...] st Contact Info) Description 08/30/2025 8:20 AM RESEARCH ASSISTANT PROFESSOR Procedure [facility] [email or web address] [facility] [address] [place] [phone] 09/02/2025 8:30 AM RESEARCH ASSISTANT PROFESSOR Office Visit [facility] [employer] [facility] [address] [place] [phone] Sienna Costa, ANP [address] [place] [address] Health Maintenance Due Date Last Done Comments [...] Comments LIPID PANEL Routine 09/22/2024 8:29 AM RESEARCH ASSISTANT PROFESSOR Screening for condition HEMOGLOBIN A1C Routine 09/03/2024 9:54 AM RESEARCH ASSISTANT PROFESSOR Type 2 diabetes mellitus without complication, without long-term current use of insulin ([facility]) MICROALBUMIN/CREATIN INE RATIO, RANDOM UR Routine 09/03/2024 9:54 AM RESEARCH ASSISTANT PROFESSOR Type 2 diabetes mellitus without complication, without long-term current use of insulin ([facility]) DIABETES EYE EXAM Routine 01/01/2023 1:54 PM CDT from Last 3 Months or Most Recently Relevant to Health Maintenance Results * LIPID PANEL (09/22/2024 8:29 AM RESEARCH ASSISTANT PROFESSOR) CHOLESTEROL TNP mg/dL [facility] Comment: TEST NOT PERFORMED Duplicate test. HDL TNP mg/dL [facility] Comment: TEST NOT PERFORMED Duplicate test. TRIGLYCERIDE TNP mg/dL [facility] Comment: TEST NOT PERFORMED Duplicate test. LDL CALCULATED TNP mg/dL (calc) [facility] Comment: TEST NOT PERFORMED Duplicate test. CHOL/HDL RATIO TNP (calc) [facility] Comment: TEST NOT PERFORMED Duplicate test. NON-HDL CHOLESTEROL TNP mg/dL (calc) [facility] Comment: TEST NOT PERFORMED Duplicate test. Test Performed at: [facility] [id number] [facility] [place] [address] Ozzie Hull MD Blood 09/22/2024 8:29 AM RESEARCH ASSISTANT PROFESSOR 09/23/2024 2:19 PM RESEARCH ASSISTANT PROFESSOR us Sherlyn Cagle MD CHEMISTRY ORDERABLES Final Res ult [facility] [phone] [facility] [address] [facility] [phone] * (ABNORMAL) HEMOGLOBIN A1C (09/03/2024 9:54 AM RESEARCH ASSISTANT PROFESSOR) HEMOGLOBIN A1C 5.8(H) <5.7 % of total Hgb [facility] Comment: For someone without known diabetes, [...] ESTIMATED AVERAGE GLUCOSE (MG/DL) 120 mg/dL [facility] ESTIMATED AVERAGE GLUCOSE (MMOL/L) 6.6 mmol/L [facility] Comment: NO COLLECTION DATE RECEIVED. WE HAVE USED THE DATE THE SPECIMEN WAS RECEIVED BY THIS LABORATORY THE COLLECTION DATE. IF THIS IS INCORRECT, PLEASE CONTACT CLIENT SERVICES. PHONE NUMBER: [phone] Test Performed at: [facility] [id number], [place] [address] Ozzie Hull MD Blood 09/03/2024 9:54 AM RESEARCH ASSISTANT PROFESSOR 09/04/2024 12:01 PM RESEARCH ASSISTANT PROFESSOR us Sherlyn Cagle MD CHEMISTRY ORDERABLES Final Res ult [facility] [phone] [place], [place] [phone] * MICROALBUMIN/CREATININE RATIO, RANDOM UR (09/03/2024 9:54 AM RESEARCH ASSISTANT PROFESSOR) Creatinine, Urine 38 20 - 275 mg/dL [facility] MICROALBUMIN, URINE <0.2 See Note: mg/dL [...] within a diagnostic category. Test Performed at: [facility] [id number] [address] Ozzie Hull MD Urine URINE SPECIMEN OBTAINED BY CLEAN CATCH PROCEDURE / Unknown 09/03/2024 9:54 AM RESEARCH ASSISTANT PROFESSOR 09/04/2024 10:50 AM RESEARCH ASSISTANT PROFESSOR us Sherlyn Cagle MD URINE ORDERABLES Final Result [facility] [phone] [facility] [address] [place] [address] * DIABETES EYE EXAM (01/01/2023 1:54 PM CDT) us Abstract Provider HEALTH MAINTENANCE Edited Resu lt - Final [facility] CLIA# [id number] [address] [place], [place] [address] from Last 3 Months or Most Recently Relevant to Health Maintenance Insurance ALLEGIANCE OPEN ACCESS * Guarantor: [employer]) Account Type Relation to Patient Date of Phone Billing Address Corporate Employer ATTN: MARYLIN PALACIO [address] [address] [facility] OPEN [facility]ESS [facility] Care Teams Electro Mechanical Solar Technician Relationship Specialty Start Date End Date Sherlyn Cagle MD [address] [place] [address] [place] [address] PCP - General Internal Medicine 03/03/24
--- OUTSIDE RECORDS SUMMARY | 2025-07-19 07:56 | XMS_ITS | Encounter Summary ---
Author Organization [facility] Address [address] [place] [address] Care Team Providers Care Security Site Supervisor Name Role Phone Sherlyn Cagle MD Primary Care Provider Encounter Details Date Type Department Care Team (Late st Contact Info) Description 09/09/2024 Results Follow-Up [facility] [place] [address] [place] [address] Sherlyn Cagle MD [address] [place] [address] MICROALBUMIN/CREATIN INE RATIO, RANDOM UR, [...] AM CDT Legal Sex Female 9:47 AM LADLER Gender Identity Female 05/13/2024 9:01 AM CDT Sexual Orientation Straight 05/13/2024 9: 01 AM CDT documented as of this encounter Miscellaneous Notes * Result Encounter Note - Sherri Raines RN - 09/24/2024 7:33 AM LADLER Results faxed to utility maintenance worker ER * Result Encounter Note - Sherri Raines, RN - 09/16/2024 1:22 PM LADLER Spoke to pt giving this information. Pt verbalized understanding. Repeat lab appt scheduled for 09/22/2024 at 8:40 AM ER * Result Encounter Note - Abby Angel - 09/09/2024 1:22 PM CST This [facility] called [facility]. For unknown reasons, test were not ran but specimans were kept. [facility] will ber[facility] the tests today. ER documented in this encounter Plan of Treatment Upcoming Encounters Date Type Department Care Team (Late st Contact Info) Description 08/30/2025 8:20 AM LADLER Procedure visit [facility] [place] [address] [place] [address] 09/02/2025 8:30 AM LADLER Office Visit [facility] [place] [address] [place] [address] Sienna Costa, [facility] [address] [place] [phone] documented as of this encounter Visit Diagnoses Not on filedocumented in this encounter Care Teams Security Site Supervisor Relationship Specialty Start Date End Date Sherlyn Cagle MD [address] [place] [address] PCP - General Internal Medicine 03/03/24 documented as of this encounter
--- OUTSIDE RECORDS SUMMARY | 2025-07-19 07:56 | XMS_ITS | Clinical Summary ---
Author Organization [facility] Address [address] [place] [address] Care Team Providers Care Social Work Case Manager Name Role Phone Sreekanth Fountain MD Primary Care Provider [phone] Source Comments [facility],non-owned Affiliates and Associated Physician Practices is amultiple site organization consisting of ambulatory clinics and hospital sitesin [place], [place], [place] and [place]. This disclosure is being madepursuant to the Care Everywhere program and may not contain all information available regarding this patient. Last updated 18.[facility] Allergies Active Allergy Reactions Criticality Noted Date [...] with twice weekly NST being done at [facility]. Follow-up ultrasound to assess interval growth [...] on file Legal Sex Female 5:38 AM SPEECH CORRECTION CONSULTANT Gender Identity Not on file Sexual Orientation Not on file Last Filed Vital Signs Vital Sign Reading Time Taken Comments Blood Pressure 130/80 12/07/2013 12:51 PM CDT Pulse 84 12/07/2013 12:51 PM CDT Temperature 36.7 C (98 F) 12/07/2013 12:51 PM CDT Respiratory Rate 20 12/07/2013 12:5 1 PM CDT Oxygen Saturation 98% 09/08/2013 3:40 PM SPEECH CORRECTION CONSULTANT Inhaled Oxygen Concentration - - Weight 115.5 [...] of 3 - 19+ 3-dose series) 2003 PAP SMEAR 2005 HPV VACCINE (1 - 3-dose SCDM series) 2011 Cervical Cancer Screening 2014 PAP with HPV 2014 DEPRESSION SCREENING 08/26/2024 COVID-19 VACCINE (2024-2 6 season) 2025 INFLUENZA VACCINE (#1) 2025 ZOSTER [...] to complete this topic Insurance Care Teams Social Work Case Manager Relationship Specialty Start Date End Date Serekanth Fountain MD PCP - General Obstetrics and Gynecology 09/01/13
[2025-07-27 10:09] LABS: Cortisol,F,ug/24hr,U 25 ug/24 hr (6-42); Cortisol,F,ug/L,U 7 ug/L (Undefined)
[2025-07-30 21:07] LABS: Salivary Cortisol, MS 0.014 ug/dL (.)
[2025-07-31 04:07] LABS: Salivary Cortisol, MS 0.425 ug/dL (.)
== END 2025-07-19 07:45 | disposition home or self-care (01) ==
LOC: CHSLAB 07:52
PROVIDERS: Visit Provider Internal Medicine
DX: E11.9 Type 2 diabetes mellitus without complications (principal); E66.9 Obesity, unspecified; E28.2 Polycystic ovarian syndrome; Z71.3 Dietary counseling and surveillance
CPT/HCPCS: 82530; 82533